=== PATIENT | female | born 1965 | race Caucasian/White ===

== ENCOUNTER 2018-11-21 13:04 | Inpatient (IN) | payer SELFPAY ==
[~2018-11-21] VITALS: Ht 177.8 cm; Wt 64.9 kg
--- NOTE | 2018-11-21 13:28 | NUR ---
ED Nurse Note: Pt came into the ER w/ complaints of coughing and sore throat x 3 days. Pt is rating the pain in her throat a 8/10. Pt is also complaiign of headache /. Pt is A + O x4. Ambulatory. Skin warm to touch.
[2018-11-21 13:29] VITALS: BP 112/70
--- NOTE | 2018-11-21 13:38 | Emergency Room Report ---
History of Present Illness General Chief Complaint: Dyspnea/Respdistress Source: Patient Present Illness HPI Patient present his cough and difficulty breathing for 3 days.. Patient reports having a prior history of COPD. She states she is a former smoker and quit approximately 6 months ago. She states she recently moved to this area from [place]. She denies any having a primary care physician. She reports having increased productive cough. States she has prior history of bronchitis.Reports of increased generalized body aches. Allergies: Coded Allergies: No Known Allergies (Unverified , 11/21/18) Patient History Past Medical History: see triage record Reviewed Nursing Documentation: PMH: Agreed; PSxH: Agreed Nursing Documentation-PMH Past Medical History: No History, Except For Hx Asthma: Yes Hx COPD: Yes Review of Systems All Other Systems: negative except mentioned in HPI Physical Exam Vital Signs Date Time Temp Pulse Resp B/P (MAP) Pulse Ox O2 Delivery O2 Flow Rate FiO2 11/21/18 13:17 98.2 107 22 102/64 90 Room Air 11/21/18 13:29 94 Sp02 EP Interpretation: reviewed, normal General Appearance: normal inspection, alert, GCS 15, moderate distress Head: atraumatic ENT: normal ENT inspection, hearing grossly normal, normal voice Neck: normal inspection, full range of motion, supple, no bony tend Respiratory: normal inspection, no respiratory distress, no retraction, wheezing Cardiovascular #1: no edema, tachycardia Gastrointestinal: normal inspection, normal bowel sounds, non tender, soft, no guarding, no hernia Genitourinary: no CVA tenderness Musculoskeletal: normal inspection, back normal, normal range of motion Neurologic: normal inspection, alert, responsive, speech normal Psychiatric: normal inspection, judgement/insight normal, mood/affect normal Skin: normal inspection, normal color, no rash Medical Decision Making Diagnostic Impression: Primary Impression: Pneumonia Additional Impressions: Hx of smoking COPD (chronic obstructive pulmonary disease) ER Course Patient presented for shortness of breath. Differential included but was not limited to anemia, pneumonia, pneumothorax, myocardial infarction, pericardial effusion, congestive heart failure, acidosis. because of complexity of patient 's case laboratory testing and imaging studies were ordered.Chest x-ray 1 view read by radiology showed bilateral infiltrates there is an abnormal density in the right perihilar region as well as a ill-defined density at the left lung base obscuring the lateral aspect of the left hemidiaphragm. Patient was given IV steroids as well as breathing treatments with some improvement in her cough. Patient was started on IV antibiotics.patient was noted to have prior smoking history and states she quit approximately 6 months ago. Patient will likely be admitted for further evaluation and work-up of pneumonia. Dr. House was contacted for inpatient management due to panel physician Labs Test 11/21/18 13:40 White Blood Count 15.5 K/UL (4.8-10.8) Red Blood Count 5.31 M/UL (4.20-5.40) Hemoglobin 15.2 G/DL (12.0-16.0) Hematocrit 44.7 % (37.0-47.0) Mean Corpuscular Volume 84 FL (80-99) Mean Corpuscular Hemoglobin 28.6 PG (27.0-31.0) Mean Corpuscular Hemoglobin Concent 34.0 G/DL (32.0-36.0) Red Cell Distribution Width 11.7 % (11.6-14.8) Platelet Count 141 K/UL (150-450) Mean Platelet Volume 9.5 FL (6.5-10.1) Neutrophils (%) (Auto) 78.4 % (45.0-75.0) Lymphocytes (%) (Auto) 14.5 % (20.0-45.0) Monocytes (%) (Auto) 6.7 % (1.0-10.0) Eosinophils (%) (Auto) 0.0 % (0.0-3.0) Basophils (%) (Auto) 0.5 % (0.0-2.0) Sodium Level 133 MMOL/L (136-145) Potassium Level 3.8 MMOL/L (3.5-5.1) Chloride Level 97 MMOL/L (98-107) Carbon Dioxide Level 27 MMOL/L (21-32) Anion Gap 9 mmol/L (5-15) Blood Urea Nitrogen 13 mg/dL (7-18) Creatinine 0.9 MG/DL (0.55-1.30) Estimat Glomerular Filtration Rate > 60 mL/min (>60) Glucose Level 123 MG/DL (74-106) Lactic Acid Level 1.90 mmol/L (0.4-2.0) Calcium Level 8.8 MG/DL (8.5-10.1) Total Bilirubin 0.8 MG/DL (0.2-1.0) Aspartate Amino Transf (AST/SGOT) 80 U/L (15-37) Alanine Aminotransferase (ALT/SGPT) 68 U/L (12-78) Alkaline Phosphatase 99 U/L (46-116) Troponin I 0.000 ng/mL (0.000-0.056) Total Protein 7.8 G/DL (6.4-8.2) Albumin 3.4 G/DL (3.4-5.0) Globulin 4.4 g/dL Albumin/Globulin Ratio 0.8 (1.0-2.7) EKG Diagnostic Results Rate: normal - 98 Rhythm: NSR ST Segments: no acute changes Last Vital Signs Date Time Temp Pulse Resp B/P (MAP) Pulse Ox O2 Delivery O2 Flow Rate FiO2 11/21/18 13:29 98.1 104 26 112/70 94 Room Air 11/21/18 13:29 94 Status: unchanged Disposition: ADMITTED INPATIENT Condition: Stable Omar Mahoney MD Nov 21, 2018 13:39
[2018-11-21] MEDS ORDERED: Albuterol/Ipratropium 3ml neb HHN ONE (13:45)
--- NOTE | 2018-11-21 13:50 | NUR ---
ED Nurse Note: RT at the bed side for breathing treatment.
--- NOTE | 2018-11-21 13:59 | NUR ---
ED Nurse Note: Blood collected and sent to lab.
[2018-11-21 14:19] LABS: BASOPHILS % (AUTO) 0.5 % (0.0-2.0); HEMATOCRIT 44.7 % (37.0-47.0); HEMOGLOBIN 15.2 G/DL (12.0-16.0); LYMPHOCYTES % (AUTO) 14.5 % (20.0-45.0); MEAN CORPUSCULAR VOLUME 84 FL (80-99); MONOCYTES % (AUTO) 6.7 % (1.0-10.0); NEUTROPHILS % (AUTO) 78.4 % (45.0-75.0); PLATELET COUNT 141 K/UL (150-450); RED BLOOD COUNT 5.31 M/UL (4.20-5.40); RED CELL DISTRIBUTION WIDTH 11.7 % (11.6-14.8); WHITE BLOOD COUNT 15.5 K/UL (4.8-10.8)
[2018-11-21 14:25] LABS: ANION GAP 9 mmol/L (5-15); BLOOD UREA NITROGEN 13 mg/dL (7-18); CALCIUM 8.8 MG/DL (8.5-10.1); CARBON DIOXIDE 27 MMOL/L (21-32); CHLORIDE 97 MMOL/L (98-107); CREATININE 0.9 MG/DL (0.55-1.30); POTASSIUM 3.8 MMOL/L (3.5-5.1); SODIUM 133 MMOL/L (136-145)
[2018-11-21 14:31] LABS: ALANINE AMINOTRANSFERASE 68 U/L (12-78); ALBUMIN 3.4 G/DL (3.4-5.0); ALBUMIN/GLOBULIN RATIO 0.8 (1.0-2.7); ALKALINE PHOSPHATASE 99 U/L (46-116); ASPARTATE AMINO TRANSFERASE 80 U/L (15-37); BILIRUBIN,TOTAL 0.8 MG/DL (0.2-1.0)
--- NOTE | 2018-11-21 14:36 | Diagnostic Imaging Report ---
Indication: Dyspnea Comparison: None A single view chest radiograph was obtained. Findings: There is an abnormal density in the right perihilar region. This could be a mass or area of nodular pneumonia. There is a more ill-defined density at the left lung base obscuring the lateral aspect of the left hemidiaphragm. Heart size is normal. There is an old right third rib fracture. IMPRESSION: Nodular density right perihilar region. Pneumonia versus mass. Please correlate clinically. Follow-up until resolution versus CT follow-up. Ill-defined infiltrate left lung base.
[2018-11-21] MEDS ORDERED: Ampicillin/Sulbactam Sod 3 GM in NS 110 ML IVPB ONE (14:45)
[2018-11-21] MEDS ORDERED: Solu-MEDROL 125mg Inj IVP ONE (14:45)
[2018-11-21 15:32] VITALS: BP 114/93
--- NOTE | 2018-11-21 16:00 | NUR ---
Report received from ED nurse, Heidy/RN, Patient came via [facility]. Heart monitor placed. IV intact, no sign of distress at this time. Vital signs B/P 110/67, HR 90, Temp 99.0, O2 sat 94%, RR 18. Patient resting, No sign of distress/SOB noted at this time. Will continue plan of care.
--- NOTE | 2018-11-21 16:02 | NUR ---
ED Nurse Note: Gave report to REGINA Licona.
--- NOTE | 2018-11-21 16:05 | NUR ---
ED Nurse Note: Pt transferred up to tele unit. Left ER w/ all belongings. No acute distress noted.
--- NOTE | 2018-11-21 19:50 | NUR ---
NURSE NOTES: Report received from Ange Hines RN. Pt is resting in bed in stable condition. Pt is awake, alert, and oriented x4. Pt is on room air and breathing is slightly shallow and labored. Pt is c/o productive cough x3 days with yellow mucous and pain in chest and back w/ cough. Pt placed on 2L O2 via nasal cannula and RT called to administer scheduled breathing treatment. IV site is L AC #20g and is asymptomatic, patent, and intact. Bed is in lowest position with brake engaged, side rails up x3, and bed alarm on. Call light and side table placed within reach. Will continue to monitor.
--- NOTE | 2018-11-21 19:59 | NUR ---
HAND-OFF: Report given to Katie/REGINA, No distress/SOB noted, Patient is in stable condition. Endorsed plan of care.
[2018-11-21 20:00] VITALS: BP 105/63
--- NOTE | 2018-11-21 20:02 | NUR ---
NURSE NOTES: Spoke with MD Frannie Walker and updated MD on pt condition, most recent vitals, and lab values. MD provided orders for patient. Orders noted and carried out.
--- NOTE | 2018-11-21 20:10 | NUR ---
NURSE NOTES: MD Larios called re: update on pt condition and was provided with pt current status, most recent vitals, and labs. MD provided orders for patient and orders were noted and carried out.
--- NOTE | 2018-11-21 20:10 | Pulmonology Progress Note ---
Assessment/Plan Assessment/Plan Pulmonary Consultation HPI Patient is a 53 year old woman with history of Chronic Obstructive Pumonary Disease, she presents with productive cough and difficulty breathing for 3 days. She is a former smoker and quit approximately 6 months ago. She states she recently moved to this area from [place]. She denies any having a primary care physician. She reports having increased productive cough, denies hemoptysis, has generalized body aches.. States she has prior history of bronchitis. Allergies: No Known Allergies Past Medical History: COPD/Asthma Reviewed Nursing Documentation: PMH: Agreed; PSxH: Agreed All Other Systems: negative except mentioned in HPI Physical Exam Vital Signs Noted Date Time Temp Pulse Resp B/P (MAP) Pulse Ox O2 Delivery O2 Flow Rate FiO2 11/21/18 13:17 98.2 107 22 102/64 90 Room Air 11/21/18 13:29 94 RA General Appearance: normal inspection, alert, GCS 15, moderate distress Head: atraumatic ENT: normal ENT inspection, hearing grossly normal, normal voice Neck: normal inspection, full range of motion, supple, no bony tend Respiratory: normal inspection, no respiratory distress, no retraction, wheezing noted Cardiovascular: HS1, HS2, normal, no edema, tachycardia Gastrointestinal: normal inspection, normal bowel sounds, non tender, soft, no guarding, no hernia Genitourinary: no CVA tenderness Musculoskeletal: normal inspection, back normal, normal range of motion Neurologic: normal inspection, alert, responsive, speech normal Psychiatric: normal inspection, judgement/insight normal, mood/affect normal Skin: normal inspection, normal color, no rash Diagnostic Impression: Primary Impression: Chronic obstructive pulmonary disease/Asthma Pneumonia Nodular abnormailty right perihilar region Hx of smoking Plan IV Antibiotics: Ceftroaxone/Azitho IV Steroids HHN Q4 PPX RAMP SUPERVISOR Medications Labs Test 11/21/18 13:40 White Blood Count 15.5 K/UL (4.8-10.8) Red Blood Count 5.31 M/UL (4.20-5.40) Hemoglobin 15.2 G/DL (12.0-16.0) Hematocrit 44.7 % (37.0-47.0) Mean Corpuscular Volume 84 FL (80-99) Mean Corpuscular Hemoglobin 28.6 PG (27.0-31.0) Mean Corpuscular Hemoglobin Concent 34.0 G/DL (32.0-36.0) Red Cell Distribution Width 11.7 % (11.6-14.8) Platelet Count 141 K/UL (150-450) Mean Platelet Volume 9.5 FL (6.5-10.1) Neutrophils (%) (Auto) 78.4 % (45.0-75.0) Lymphocytes (%) (Auto) 14.5 % (20.0-45.0) Monocytes (%) (Auto) 6.7 % (1.0-10.0) Eosinophils (%) (Auto) 0.0 % (0.0-3.0) Basophils (%) (Auto) 0.5 % (0.0-2.0) Sodium Level 133 MMOL/L (136-145) Potassium Level 3.8 MMOL/L (3.5-5.1) Chloride Level 97 MMOL/L (98-107) Carbon Dioxide Level 27 MMOL/L (21-32) Anion Gap 9 mmol/L (5-15) Blood Urea Nitrogen 13 mg/dL (7-18) Creatinine 0.9 MG/DL (0.55-1.30) Estimat Glomerular Filtration Rate > 60 mL/min (>60) Glucose Level 123 MG/DL (74-106) Lactic Acid Level 1.90 mmol/L (0.4-2.0) Calcium Level 8.8 MG/DL (8.5-10.1) Total Bilirubin 0.8 MG/DL (0.2-1.0) Aspartate Amino Transf (AST/SGOT) 80 U/L (15-37) Alanine Aminotransferase (ALT/SGPT) 68 U/L (12-78) Alkaline Phosphatase 99 U/L (46-116) Troponin I 0.000 ng/mL (0.000-0.056) Total Protein 7.8 G/DL (6.4-8.2) Albumin 3.4 G/DL (3.4-5.0) Globulin 4.4 g/dL Albumin/Globulin Ratio 0.8 (1.0-2.7) CXR: Ill defined nodular area right perihilar area, ill defined opacity left lower zone EKG: Rate: normal - 98 Rhythm: NSR ST Segments: no acute changes Subjective ROS Limited/Unobtainable: No Respiratory: Reports: shortness of breath Allergies: Coded Allergies: No Known Allergies (Unverified , 11/21/18) Objective Last 24 Hour Vital Signs Date Time Temp Pulse Resp B/P (MAP) Pulse Ox O2 Delivery O2 Flow Rate FiO2 11/21/18 16:44 Room Air 11/21/18 16:04 98.2 95 21 111/65 97 Room Air 21 11/21/18 15:32 98.0 96 27 114/93 96 Room Air 21 11/21/18 13:56 101 20 100 Room Air 21 11/21/18 13:50 98 22 98 Room Air 21 11/21/18 13:50 36 11/21/18 13:29 98.1 104 26 112/70 94 Room Air 11/21/18 13:29 104 26 Room Air 94 11/21/18 13:17 98.2 107 22 102/64 90 Room Air Laboratory Tests 11/21/18 12:42: Urine Opiates Screen Negative, Urine Barbiturates Screen Negative, Phencyclidine (PCP) Screen Negative, Urine Amphetamines Screen PositiveH, Urine Benzodiazepines Screen Negative, Urine Cocaine Screen Negative, Urine Marijuana (THC) Screen Negative 11/21/18 13:40: White Blood Count 15.5H, Red Blood Count 5.31, Hemoglobin 15.2, Hematocrit 44.7 , Mean Corpuscular Volume 84, Mean Corpuscular Hemoglobin 28.6, Mean Corpuscular Hemoglobin Concent 34.0, Red Cell Distribution Width 11.7, Platelet Count 141L, Mean Platelet Volume 9.5, Neutrophils (%) (Auto) 78.4H, Lymphocytes (%) (Auto) 14.5L, Monocytes (%) (Auto) 6.7, Eosinophils (%) (Auto) 0.0, Basophils (%) (Auto) 0.5, Sodium Level 133L, Potassium Level 3.8, Chloride Level 97L, Carbon Dioxide Level 27, Anion Gap 9, Blood Urea Nitrogen 13, Creatinine 0.9, Estimat Glomerular Filtration Rate > 60, Glucose Level 123H, Lactic Acid Level 1.90, Calcium Level 8.8, Total Bilirubin 0.8, Aspartate Amino Transf (AST/SGOT) 80H, Alanine Aminotransferase (ALT/SGPT) 68, Alkaline Phosphatase 99, Troponin I 0.000, Total Protein 7.8, Albumin 3.4, Globulin 4.4, Albumin/Globulin Ratio 0.8L Current Medications Medications (Trade) Dose Ordered Sig/Heike Route PRN Reason Start Time Stop Time Status Last Admin Dose Admin Acetaminophen (Tylenol) 650 mg Q4H PRN ORAL Mild Pain/Temp > 100.5 11/21/18 18:45 12/21/18 18:44 Albuterol/ Ipratropium (Albuterol/ Ipratropium) 3 ml Q4HRT HHN 11/21/18 19:00 11/26/18 18:59 Frankie Larios MD Nov 21, 2018 20:10
[2018-11-21] MEDS ORDERED: Hydromorphone 0.5mg/0.5ml inj IVP PRN (20:30)
[2018-11-21] MEDS ORDERED: Azithromycin 500 MG in D5W 275 ML IVPB SCH (20:30)
--- NOTE | 2018-11-21 20:50 | NUR ---
NURSE NOTES: MD Larios at bedside with pt. More orders provided per MD. Orders noted and carried out.
[2018-11-21] MEDS: Albuterol/Ipratropium 3ml neb HHN SCH (20:57)
[2018-11-21] MEDS ORDERED: Azithromycin 250mg tab ORAL SCH (21:00)
--- NOTE | 2018-11-21 21:30 | NUR ---
NURSE NOTES: Influenza A+B swab and sputum culture collected and delivered to lab for processing.
[2018-11-21] MEDS: Solu-MEDROL 125mg Inj IVP SCH (21:56)
[2018-11-21] MEDS: HYDROcodone/Acetamin 5/325 tab ORAL PRN (21:57)
[2018-11-21] MEDS: Heparin 5000 units/ml inj SUBQ SCH (21:58)
[2018-11-21] MEDS: cefTRIAXone 1 GM in D5W 55 ML IVPB SCH (22:43)
[2018-11-22] VITALS: BP 110/60
[2018-11-22] MEDS: Albuterol/Ipratropium 3ml neb HHN SCH ×7 (00:41→23:40)
[2018-11-22 04:00] VITALS: BP 122/75
[2018-11-22] MEDS: Solu-MEDROL 125mg Inj IVP SCH ×3 (06:26→20:45)
--- NOTE | 2018-11-22 07:19 | NUR ---
HAND-OFF: Report given to Ange Hines RN. Pt is resting in bed in stable condition. No acute distress noted. Endorsed plan of care.
--- NOTE | 2018-11-22 07:20 | NUR ---
NURSE NOTES: Received report from Katie/REGINA. Patient is awake and alert. No distress/SOB noted at this time. Bed in low position, Call light within reach. Will continue plan of care.
[2018-11-22 07:26] LABS: HEMATOCRIT 42.4 % (37.0-47.0); HEMOGLOBIN 14.4 G/DL (12.0-16.0); MEAN CORPUSCULAR VOLUME 84 FL (80-99); PLATELET COUNT 190 K/UL (150-450); RED BLOOD COUNT 5.04 M/UL (4.20-5.40); RED CELL DISTRIBUTION WIDTH 11.5 % (11.6-14.8); WHITE BLOOD COUNT 13.3 K/UL (4.8-10.8)
[2018-11-22 07:44] LABS: ALANINE AMINOTRANSFERASE 54 U/L (12-78); ALBUMIN 2.9 G/DL (3.4-5.0); ALBUMIN/GLOBULIN RATIO 0.6 (1.0-2.7); ALKALINE PHOSPHATASE 102 U/L (46-116); ANION GAP 10 mmol/L (5-15); ASPARTATE AMINO TRANSFERASE 32 U/L (15-37); BILIRUBIN,TOTAL 0.2 MG/DL (0.2-1.0); BLOOD UREA NITROGEN 18 mg/dL (7-18); CALCIUM 9.2 MG/DL (8.5-10.1); CARBON DIOXIDE 25 MMOL/L (21-32); CHLORIDE 100 MMOL/L (98-107); POTASSIUM 3.4 MMOL/L (3.5-5.1); SODIUM 135 MMOL/L (136-145)
[2018-11-22 08:00] VITALS: BP 123/73
[2018-11-22] MEDS: HYDROcodone/Acetamin 5/325 tab ORAL PRN ×2 (09:08→22:53)
[2018-11-22] MEDS: Oseltamivir 75mg cap ORAL SCH ×2 (09:08→18:49)
[2018-11-22] MEDS: Azithromycin 250mg tab ORAL SCH (09:08)
[2018-11-22] MEDS: Heparin 5000 units/ml inj SUBQ SCH ×2 (09:10→20:47)
[2018-11-22] MEDS ORDERED: Pneumococcal Vaccine 25mcg/0.5ml IM ONE (11:30)
--- NOTE | 2018-11-22 11:52 | Diagnostic Imaging Report ---
Clinical Indication: Chronic obstructive pulmonary disease, productive cough, difficulty breathing for 3 days Technique: Spiral acquisitions obtained through the chest. No IV contrast utilized, per referring physician request. Multiplanar reconstructions generated. Total dose length product 698.62 mGycm. CTDIvol(s) 18.33 mGy. Dose reduction achieved using automated exposure control Comparison: No comparison CTs. Reference made to chest radiograph 11/21/2018 Findings:In the inferior right lower lobe, abutting the minor fissure, there is a 4 x 2.3 cm area of opacity which is fairly dense, contains air bronchograms. There is surrounding groundglass opacity also abutting the minor fissure. The right middle lobe is clear. Ill-defined peripheral parenchymal opacities in the posterior right lower lobe are noted, with fairly dense dependent posterior atelectasis noted in the right lower lobe. There may be an element of scarring, as there appears to be some bronchiectasis associated with this. In the posterior inferior lingula, there is an irregular opacity measuring approximately 3 cm AP by 3 cm transverse by 3 cm craniocaudad. This also contains some air-fluid levels. Focal dense opacity is seen in the posterior left infrahilar region measuring 2.5 x 2.6 x 3 cm, also with air bronchograms. More ill-defined opacities are seen in the posterior and inferior left lower lobe, mostly appearing to represent dependent atelectatic changes but also possibly a component of consolidation. No definite congestion. No definite effusions. Minimal scarring is seen in the lung apices bilaterally. The heart size is normal. No definite pericardial effusion. No mediastinal or hilar mass or adenopathy. No axillary or chest wall mass or adenopathy. There is a right third rib fracture deformity, old. The bones are otherwise unremarkable. The included upper abdominal viscera are unremarkable. There is incidental finding of an accessory splenule. Impression: Bilateral parenchymal opacities, as described. The larger of these contain bronchograms, suggesting that these findings represent pneumonia rather than mass lesion. However, the latter cannot be completely excluded, and follow-up to radiographic resolution is recommended. Bilateral posterior basilar opacities likely reflect combination of atelectasis and scarring. Incidental findings of old healed right third rib fracture, accessory splenule The CT scanner at [facility] is accredited by the [employer] and the scans are performed using protocols designed to limit radiation exposure to as low as reasonably achievable to attain images of sufficient resolution adequate for diagnostic evaluation.
[2018-11-22 12:00] VITALS: BP 139/86
--- NOTE | 2018-11-22 12:54 | Consultation ---
Consult Note Consult Note Asked to eval at the request of Dr House Patient present his cough and difficulty breathing for 3 days.. Patient reports having a prior history of COPD. She states she is a former smoker and quit approximately 6 months ago. She states she recently moved to this area from [place]. She denies any having a primary care physician. She reports having increased productive cough. States she has prior history of bronchitis.Reports of increased generalized body aches. No Known Allergies (Unverified , 11/21/18) Past Medical History: No History, Except For Hx Asthma: Yes Hx COPD: Yes examied data reviewed Assessment/Plan Mild HypoKalemia and HypoNatremia Urine + for Amphetamines- Chronic obstructive pulmonary disease/Asthma Pneumonia Nodular abnormailty right perihilar region Hx of smoking Per pulmonary PO K supplement Monitor lytes steroid taper per pulmonary ! Donal Mooney MD November 22, 2018 12:54
--- NOTE | 2018-11-22 13:42 | Pulmonology Progress Note ---
Assessment/Plan Assessment/Plan Pulmonary Progress Note HPI Patient is a 53 year old woman with history of Chronic Obstructive Pumonary Disease, she presents with productive cough and difficulty breathing for 3 days. She is a former smoker and quit approximately 6 months ago. She states she recently moved to this area from [facility]. She denies any having a primary care physician. She reports having increased productive cough, denies hemoptysis, has generalized body aches.. States she has prior history of bronchitis. Noted to have bilateral infiltrates Allergies: No Known Allergies Past Medical History: COPD/Asthma Reviewed Nursing Documentation: PMH: Agreed; PSxH: Agreed All Other Systems: negative except mentioned in HPI Physical Exam Vital Signs Noted General Appearance: normal inspection, alert, GCS 15, not distressed Head: atraumatic ENT: normal ENT inspection, hearing grossly normal, normal voice Neck: normal inspection, full range of motion, supple, no bony tend Respiratory: normal inspection, no respiratory distress, no retraction, no wheezing Cardiovascular: HS1, HS2, normal, no edema, tachycardia Gastrointestinal: normal inspection, normal bowel sounds, non tender, soft, no guarding, no hernia Genitourinary: no CVA tenderness Musculoskeletal: normal inspection, back normal, normal range of motion Neurologic: normal inspection, alert, responsive, speech normal Psychiatric: normal inspection, judgement/insight normal, mood/affect normal Skin: normal inspection, normal color, no rash Diagnostic Impression: Primary Impression: Chronic obstructive pulmonary disease/Asthma Pneumonia Nodular abnormailty right perihilar region - no definite mass on CT Hx of smoking Plan IV Antibiotics: Ceftroaxone/Azitho IV Steroids HHN Q4 PPX [employer] Medications Viral studies Labs Test 11/21/18 13:40 White Blood Count 15.5 K/UL (4.8-10.8) Red Blood Count 5.31 M/UL (4.20-5.40) Hemoglobin 15.2 G/DL (12.0-16.0) Hematocrit 44.7 % (37.0-47.0) Mean Corpuscular Volume 84 FL (80-99) Mean Corpuscular Hemoglobin 28.6 PG (27.0-31.0) Mean Corpuscular Hemoglobin Concent 34.0 G/DL (32.0-36.0) Red Cell Distribution Width 11.7 % (11.6-14.8) Platelet Count 141 K/UL (150-450) Mean Platelet Volume 9.5 FL (6.5-10.1) Neutrophils (%) (Auto) 78.4 % (45.0-75.0) Lymphocytes (%) (Auto) 14.5 % (20.0-45.0) Monocytes (%) (Auto) 6.7 % (1.0-10.0) Eosinophils (%) (Auto) 0.0 % (0.0-3.0) Basophils (%) (Auto) 0.5 % (0.0-2.0) Sodium Level 133 MMOL/L (136-145) Potassium Level 3.8 MMOL/L (3.5-5.1) Chloride Level 97 MMOL/L (98-107) Carbon Dioxide Level 27 MMOL/L (21-32) Anion Gap 9 mmol/L (5-15) Blood Urea Nitrogen 13 mg/dL (7-18) Creatinine 0.9 MG/DL (0.55-1.30) Estimat Glomerular Filtration Rate > 60 mL/min (>60) Glucose Level 123 MG/DL (74-106) Lactic Acid Level 1.90 mmol/L (0.4-2.0) Calcium Level 8.8 MG/DL (8.5-10.1) Total Bilirubin 0.8 MG/DL (0.2-1.0) Aspartate Amino Transf (AST/SGOT) 80 U/L (15-37) Alanine Aminotransferase (ALT/SGPT) 68 U/L (12-78) Alkaline Phosphatase 99 U/L (46-116) Troponin I 0.000 ng/mL (0.000-0.056) Total Protein 7.8 G/DL (6.4-8.2) Albumin 3.4 G/DL (3.4-5.0) Globulin 4.4 g/dL Albumin/Globulin Ratio 0.8 (1.0-2.7) CXR: Ill defined nodular area right perihilar area, ill defined opacity left lower zone CT Chest: Bilateral parenchymal opacities, as described. The larger of these contain bronchograms, suggesting that these findings represent pneumonia rather than mass lesion. However, the latter cannot be completely excluded, and follow-up to radiographic resolution is recommended. Bilateral posterior basilar opacities likely reflect combination of atelectasis and scarring. Incidental findings of old healed right third rib fracture, accessory splenule EKG: Rate: normal - 98 Rhythm: NSR ST Segments: no acute changes Subjective ROS Limited/Unobtainable: Yes Respiratory: Reports: shortness of breath Allergies: Coded Allergies: No Known Allergies (Unverified , 11/21/18) Objective Last 24 Hour Vital Signs Date Time Temp Pulse Resp B/P (MAP) Pulse Ox O2 Delivery O2 Flow Rate FiO2 11/22/18 11:06 110 23 99 Nasal Cannula 2.0 28 11/22/18 10:49 105 24 96 Nasal Cannula 2.0 28 11/22/18 08:00 97.5 110 18 123/73 (90) 97 11/22/18 07:33 104 21 98 Nasal Cannula 2.0 28 11/22/18 07:17 97 Nasal Cannula 2.0 28 11/22/18 07:17 102 22 97 Nasal Cannula 2.0 28 11/22/18 07:17 Nasal Cannula 2.0 28 11/22/18 04:00 86 11/22/18 04:00 97.3 102 18 122/75 (91) 96 11/22/18 03:49 86 18 99 Nasal Cannula 2.0 28 11/22/18 03:39 28 11/22/18 03:39 88 22 97 Nasal Cannula 2.0 28 11/22/18 00:51 82 18 99 Nasal Cannula 2.0 28 11/22/18 00:41 81 22 96 Nasal Cannula 2.0 28 11/22/18 00:41 28 11/22/18 00:00 97.5 95 18 110/60 (77) 98 11/22/18 00:00 91 11/21/18 21:09 89 20 98 Nasal Cannula 2.0 28 11/21/18 21:00 Nasal Cannula 2.0 11/21/18 20:57 81 22 90 Room Air 21 11/21/18 20:57 36 11/21/18 20:00 84 11/21/18 20:00 97.8 83 18 105/63 (77) 98 11/21/18 16:44 Room Air 11/21/18 16:04 98.2 95 21 111/65 97 Room Air 21 11/21/18 15:32 98.0 96 27 114/93 96 Room Air 21 11/21/18 13:56 101 20 100 Room Air 21 11/21/18 13:50 98 22 98 Room Air 21 11/21/18 13:50 36 Intake and Output 11/21/18 11/22/18 18:59 06:59 Intake Total 600 ml 360 ml Balance 600 ml 360 ml Intake Oral 360 ml IV Total 600 ml # Voids 2 2 Microbiology Date/Time Source Procedure Growth Status 11/21/18 21:15 Nasal Nares Right - Final Complete 11/21/18 21:15 Nasal Nares Right - Final Complete 11/21/18 21:10 Sputum Gram Stain - Final Resulted 11/21/18 21:10 Sputum Sputum Culture Pending Resulted Laboratory Tests 11/22/18 06:59: White Blood Count 13.3H, Red Blood Count 5.04, Hemoglobin 14.4, Hematocrit 42.4 , Mean Corpuscular Volume 84, Mean Corpuscular Hemoglobin 28.6, Mean Corpuscular Hemoglobin Concent 34.0, Red Cell Distribution Width 11.5L, Platelet Count 190, Mean Platelet Volume 6.9, Neutrophils (%) (Auto) , Lymphocytes (%) (Auto) , Monocytes (%) (Auto) , Eosinophils (%) (Auto) , Basophils (%) (Auto) , Differential Total Cells Counted 100, Neutrophils % ( Manual) 90H, Lymphocytes % (Manual) 7L, Monocytes % (Manual) 3, Eosinophils % ( Manual) 0, Basophils % (Manual) 0, Band Neutrophils 0, Platelet Estimate Adequate, Platelet Morphology Normal, Red Blood Cell Morphology Normal, Sodium Level 135L, Potassium Level 3.4L, Chloride Level 100, Carbon Dioxide Level 25, Anion Gap 10, Blood Urea Nitrogen 18, Creatinine 1.0, Estimat Glomerular Filtration Rate 58.5, Glucose Level 286#H, Calcium Level 9.2, Total Bilirubin 0.2, Aspartate Amino Transf (AST/SGOT) 32, Alanine Aminotransferase (ALT/SGPT) 54, Alkaline Phosphatase 102, Total Protein 7.8, Albumin 2.9L, Globulin 4.9, Albumin/Globulin Ratio 0.6L Current Medications Medications (Trade) Dose Ordered Sig/Heike Route PRN Reason Start Time Stop Time Status Last Admin Dose Admin Acetaminophen (Tylenol) 650 mg Q4H PRN ORAL Mild Pain/Temp > 100.5 11/21/18 18:45 12/21/18 18:44 Acetaminophen/ Hydrocodone Bitart ([place] 5/325) 1 tab Q6H PRN ORAL Moderate Pain (Pain Scale 4-6) 11/21/18 20:30 11/28/18 20:29 11/22/18 09:08 Albuterol/ Ipratropium (Albuterol/ Ipratropium) 3 ml Q4HRT HHN 11/21/18 19:00 11/26/18 18:59 11/22/18 10:49 Azithromycin (Zithromax) 250 mg DAILY ORAL 11/22/18 09:00 11/29/18 08:59 11/22/18 09:08 Ceftriaxone Sodium 1 gm/ Dextrose 55 ml @ 110 mls/hr Q24H IVPB 11/21/18 22:00 11/28/18 21:59 11/21/18 22:43 Heparin Sodium (Porcine) (Heparin 5000 units/ml) 5,000 units EVERY 12 HOURS SUBQ 11/21/18 21:00 12/21/18 20:59 11/22/18 09:10 Hydromorphone HCl (Dilaudid) 0.5 mg Q4H PRN IVP Severe Pain (Pain Scale 7-10) 11/21/18 20:30 11/28/18 20:29 Methylprednisolone Sodium Succinate (Solu-MEDROL) 60 mg EVERY 8 HOURS IVP 11/21/18 22:00 12/21/18 21:59 11/22/18 06:26 Ondansetron HCl (Zofran) 4 mg Q8H PRN IVP Nausea & Vomiting 11/21/18 20:30 12/21/18 20:29 Oseltamivir Phosphate (Tamiflu) 75 mg TWICE A DAY ORAL 11/22/18 09:00 11/27/18 08:59 11/22/18 09:08 Pneumococcal Polyvalent Vaccine (Pneumovax) 0.5 ml ONCE ONCE IM 11/22/18 11:30 11/22/18 11:31 UNV Potassium Chloride (K-Dur) 40 meq DAILY ORAL 11/22/18 09:00 12/22/18 08:59 11/22/18 09:05 Sodium Chloride 1,000 ml @ 75 mls/hr [id number] IV 11/22/18 13:07 12/22/18 13:06 Frankie Larios MD November 22, 2018 13:42
[2018-11-22 16:00] VITALS: BP 127/75
--- NOTE | 2018-11-22 16:04 | NUR ---
CASE MANAGEMENT:REVIEW 53 YR OLD FEMALE PRESENTED TO ER CC: SOB AND HEADACHE SI: PNEUMONIA. COPD 98.2 107 22 102/64 90% ON RA WBC+15.5 IS: 500CC NS BOLUS DUONEB HHN IV AMPICILLIN IV SOLUMEDROL CHEST XRAY BLOOD CX : TO TELEMETRY INTERQUAL CRITERIA MET
--- NOTE | 2018-11-22 18:30 | Consultation ---
DATE OF CONSULTATION: 11/22/2018 INFECTIOUS DISEASE CONSULTATION CONSULTING PHYSICIAN: Ross Walker M.D. PRIMARY ATTENDING PHYSICIAN: Addison Hernandez M.D. REASON FOR CONSULT: Pneumonia, COPD, and sepsis. HISTORY OF PRESENT ILLNESS: This is a 53-year-old white female admitted yesterday from home complaining of shortness of breath and productive cough for three days. The patient has a history of COPD and history of smoking, still smoking on and off. At the time of admission had leukocytosis of 15.3, tachycardia, and tachypnea. PAST MEDICAL HISTORY: COPD. ALLERGIES: No known drug allergies. MEDICATIONS: Azithromycin, Tamiflu, ceftriaxone, methylprednisone, heparin, Zofran, [place], hydromorphone, and Tylenol. SOCIAL HISTORY: , lives alone. She has history of drinking, but cannot provide exact amount and smoking. Recently moved from [place] to [facility]. Denies drug abuse. REVIEW OF SYSTEMS: Feels hot at home, but has had subjective fever but no fever in the hospital, productive cough, shortness of breath. No nausea. No vomiting. No problem passing urine. PHYSICAL EXAMINATION: VITAL SIGNS: Temperature 97.3, pulse 110, and respiratory rate 23 and at the time of admission was 26. GENERAL APPEARANCE: Seems to be thin. No acute distress. HEAD AND NECK: Matthews conjunctivae. No oral lesion. HEART: S1, S2. Regular. LUNGS: Clear with decreased sounds. ABDOMEN: Soft and nontender. EXTREMITIES: No edema. LABORATORY AND DIAGNOSTIC DATA: Sodium 135, potassium 3.4, chloride 100, and bicarbonate 25. Glucose is 286. WBC today is 13.3, hemoglobin 14.4, hematocrit 42.4, and platelets 190. Urine toxicology was positive for amphetamines. Influenza A and B test was negative. Chest x-ray showed nodular density right perihilar area, pneumonia versus mass, ill-defined infiltrate in left lung base. IMPRESSION: Sepsis with leukocytosis, tachycardia, and tachypnea likely secondary to pneumonia. The patient has chronic obstructive pulmonary disease exacerbation and has nicotine dependence, methamphetamine abuse, and alcohol abuse. RECOMMENDATION: We will give the patient pneumococcal shot. We will continue with Zithromax and Rocephin. We will follow up CT scan of the chest and order HIV test because of drug abuse. At the end of my exam, I thank Dr. Hernandez for involving me in the care of this patient. Ross Walker M.D. DR: YEN JOB#: [id number] CC: GARETH
--- NOTE | 2018-11-22 19:45 | NUR ---
HAND-OFF: Report given to Tigre/RN, Patient is awake and alert, No sign of distress/SOB noted at this time. Endorsed plan of care.
--- NOTE | 2018-11-22 19:46 | NUR ---
NURSE NOTES: Got report from Monae RN. Pt in stable condition. Denies any pain. No s/s of distress or discomfort noted. Pt resting in bed comfortably. Bed in low and locked position, call light within reach, bedside table within reach. Continue to monitor.
[2018-11-22 20:00] VITALS: BP 123/83
[2018-11-22] MEDS: NovoLOG Insulin Flexpen SUBQ SCH (21:01)
[2018-11-22] MEDS: cefTRIAXone 1 GM in D5W 55 ML IVPB SCH (22:42)
[2018-11-23] VITALS: BP 128/78
[2018-11-23] MEDS: Guaifenesin/DM 10ml syrup ORAL PRN ×3 (00:09→22:35)
[2018-11-23] MEDS: Albuterol/Ipratropium 3ml neb HHN SCH ×6 (03:32→23:33)
--- NOTE | 2018-11-23 03:45 | History and Physical Report ---
DATE OF ADMISSION: 11/21/2018 HISTORY OF PRESENT ILLNESS: The patient comes in because of shortness of breath, severe productive cough, headache, and vomiting. She has a history of COPD and asthma. The patient is being admitted for bilateral pneumonia, was not currently on medications. The patient was also given IV Solu-Medrol in the emergency room. The patient was admitted for bilateral pneumonia and tachycardia as well. PAST MEDICAL HISTORY: History of COPD and asthma. PAST SURGICAL HISTORY: Eye surgery and nose surgery. SOCIAL HISTORY: History of smoking, history of drug and alcohol abuse. MEDICATIONS: She takes p.r.n. inhaler. FAMILY HISTORY: Noncontributory. REVIEW OF SYSTEMS: HEENT: Denies headaches. RESPIRATORY: Has shortness of breath and productive cough. CARDIOVASCULAR: Denies chest pain. GASTROINTESTINAL: Reports vomiting. Denies constipation. EXTREMITIES: Denies pain. CENTRAL NERVOUS SYSTEM: No change in speech pattern. Does have headache. NEUROLOGIC: Feels weak. PHYSICAL EXAMINATION: VITAL SIGNS: Temperature 97.2, pulse is 110, and blood pressure 139/86. HEENT: PERRLA. NECK: Supple. No lymphadenopathy. CHEST: Clear to auscultation. CARDIOVASCULAR: Tachycardic. GASTROINTESTINAL: Soft, nontender, and nondistended. No organomegaly. EXTREMITIES: No edema. Moves all four extremities. Sensory intact to light touch. Motor strength is equal 5/5 in all four extremities. LABORATORY DATA: WBC of 15.5, hemoglobin 16.2, and platelets 141,000. Sodium 133, potassium 3.8, BUN of 13, creatinine 0.9. ASSESSMENT: 1. Shortness of breath. 2. Pneumonia. 3. Tachycardia. 4. Hyponatremia. PLAN: I have asked Dr. Ross Walker, Dr. Mooney, Dr. Larios to see the patient for the above-mentioned diagnoses and treatment. Antibiotics per Dr. Ross Walker and the patient also has COPD exacerbation, for which Dr. Larios has been consulted. Addison Hernandez M.D. DR: DE JOB#: [id number] CC:
[2018-11-23 04:20] VITALS: BP 104/65
[2018-11-23] MEDS: NovoLOG Insulin Flexpen SUBQ SCH ×4 (06:25→22:07)
[2018-11-23 06:51] LABS: HEMATOCRIT 37.4 % (37.0-47.0); HEMOGLOBIN 12.6 G/DL (12.0-16.0); MEAN CORPUSCULAR VOLUME 84 FL (80-99); PLATELET COUNT 210 K/UL (150-450); RED BLOOD COUNT 4.43 M/UL (4.20-5.40); RED CELL DISTRIBUTION WIDTH 11.4 % (11.6-14.8); WHITE BLOOD COUNT 17.8 K/UL (4.8-10.8)
--- NOTE | 2018-11-23 07:15 | NUR ---
NURSE NOTES: Received report from Aditya TAPIA. Pt sitting in bed and eating breakfast. AOX4. NO c/o pain. No signs of distress noted. On 2LPM via NC. IV in R hand 22g intact and patent. Bed in it's lowest position and locked. Will continue to plan of care.
--- NOTE | 2018-11-23 07:15 | NUR ---
HAND-OFF: Report given to Min RN. Endorsed plan of care.
[2018-11-23 07:43] LABS: ALANINE AMINOTRANSFERASE 52 U/L (12-78); ALBUMIN 2.7 G/DL (3.4-5.0); ALBUMIN/GLOBULIN RATIO 0.6 (1.0-2.7); ALKALINE PHOSPHATASE 93 U/L (46-116); ANION GAP 8 mmol/L (5-15); ASPARTATE AMINO TRANSFERASE 34 U/L (15-37); BILIRUBIN,TOTAL 0.1 MG/DL (0.2-1.0); BLOOD UREA NITROGEN 19 mg/dL (7-18); CALCIUM 8.8 MG/DL (8.5-10.1); CARBON DIOXIDE 25 MMOL/L (21-32); CHLORIDE 104 MMOL/L (98-107); CREATININE 0.7 MG/DL (0.55-1.30); POTASSIUM 4.6 MMOL/L (3.5-5.1); SODIUM 137 MMOL/L (136-145)
[2018-11-23 08:00] VITALS: BP 110/67
--- NOTE | 2018-11-23 08:37 | Pulmonology Progress Note ---
Assessment/Plan Assessment/Plan COPD SOB patchy pneumonia abnormal CT PLAN care noted respiratory care supportive care encourage cough MAY GO HOME ON MEDROL DOSE BERNARDO [id number] QD X 7 DAYS PROAIR PRN ANORO 1 PUFF QD will need outpatient follow up of imaging and pulmonary status Subjective Allergies: Coded Allergies: No Known Allergies (Unverified , 11/21/18) Subjective coverage for Dr. Larios reviewed care Objective Last 24 Hour Vital Signs Date Time Temp Pulse Resp B/P (MAP) Pulse Ox O2 Delivery O2 Flow Rate FiO2 11/23/18 07:54 83 20 98 Nasal Cannula 2.0 28 11/23/18 04:20 96.9 94 20 104/65 (78) 97 11/23/18 04:20 87 11/23/18 03:42 107 20 99 Nasal Cannula 2.0 28 11/23/18 03:32 28 11/23/18 03:32 107 20 98 Nasal Cannula 2.0 28 11/23/18 00:00 109 11/23/18 00:00 97.0 106 20 128/78 (95) 96 11/22/18 23:50 102 20 98 Nasal Cannula 2.0 28 11/22/18 23:40 98 22 96 Nasal Cannula 2.0 28 11/22/18 23:40 28 11/22/18 23:23 97.5 11/22/18 21:00 Nasal Cannula 2.0 11/22/18 20:00 97.9 110 18 123/83 (96) 96 11/22/18 20:00 110 11/22/18 19:20 112 20 98 Nasal Cannula 2.0 28 11/22/18 19:09 111 20 95 Nasal Cannula 2.0 28 11/22/18 19:09 95 Nasal Cannula 2.0 28 11/22/18 19:09 Nasal Cannula 2.0 28 11/22/18 19:09 28 11/22/18 16:00 100 11/22/18 16:00 97.5 102 20 127/75 (92) 97 11/22/18 15:42 Nasal Cannula 11/22/18 15:42 Nasal Cannula 11/22/18 12:00 115 11/22/18 12:00 97.2 110 20 139/86 (103) 97 11/22/18 11:06 110 23 99 Nasal Cannula 2.0 28 11/22/18 10:49 105 24 96 Nasal Cannula 2.0 28 11/22/18 09:00 Nasal Cannula 2.0 Intake and Output 11/22/18 11/23/18 19:00 07:00 Intake Total 750 ml Output Total 840 ml Balance -90 ml Intake Oral 750 ml Output Urine Total 840 ml # Voids 2 Objective WDWN NAD reduced breath sounds bilaterally without rhonchi or wheeze [id number] without MRG NABS nontender no HSM no CCE Microbiology Date/Time Source Procedure Growth Status 11/21/18 21:15 Nasal Nares Right - Final Complete 11/21/18 21:15 Nasal Nares Right - Final Complete 11/21/18 21:10 Sputum Gram Stain - Final Resulted 11/21/18 21:10 Sputum Sputum Culture - Preliminary NORMAL UPPER RESPIRATORY BRIGETTE AT 24 ... Resulted Laboratory Tests 11/23/18 06:18: White Blood Count 17.8H, Red Blood Count 4.43, Hemoglobin 12.6, Hematocrit 37.4 , Mean Corpuscular Volume 84, Mean Corpuscular Hemoglobin 28.5, Mean Corpuscular Hemoglobin Concent 33.8, Red Cell Distribution Width 11.4L, Platelet Count 210, Mean Platelet Volume 8.1, Neutrophils (%) (Auto) , Lymphocytes (%) (Auto) , Monocytes (%) (Auto) , Eosinophils (%) (Auto) , Basophils (%) (Auto) , Neutrophils % (Manual) [Pending], Lymphocytes % (Manual) [Pending], Platelet Estimate [Pending], Platelet Morphology [Pending], Sodium Level 137, Potassium Level 4.6, Chloride Level 104, Carbon Dioxide Level 25, Anion Gap 8, Blood Urea Nitrogen 19H, Creatinine 0.7, Estimat Glomerular Filtration Rate > 60, Glucose Level 196H, Osmolality 299, Uric Acid [Pending], Calcium Level 8.8, Phosphorus Level [Pending], Magnesium Level [Pending], Total Bilirubin 0.1L, Aspartate Amino Transf (AST/SGOT) 34, Alanine Aminotransferase ( ALT/SGPT) 52, Alkaline Phosphatase 93, C-Reactive Protein, Quantitative [Pending ], Pro-B-Type Natriuretic Peptide [Pending], Total Protein 6.9, Albumin 2.7L, Globulin 4.2, Albumin/Globulin Ratio 0.6L, HIV (1&2) Antibody Rapid Negative Current Medications Medications (Trade) Dose Ordered Sig/Heike Route PRN Reason Start Time Stop Time Status Last Admin Dose Admin Acetaminophen (Tylenol) 650 mg Q4H PRN ORAL Mild Pain/Temp > 100.5 11/21/18 18:45 12/21/18 18:44 Acetaminophen/ Hydrocodone Bitart ([place] 5/325) 1 tab Q6H PRN ORAL Moderate Pain (Pain Scale 4-6) 11/21/18 20:30 11/28/18 20:29 11/22/18 22:53 Albuterol/ Ipratropium (Albuterol/ Ipratropium) 3 ml Q4HRT HHN 11/21/18 19:00 11/26/18 18:59 11/23/18 07:52 Azithromycin (Zithromax) 250 mg DAILY ORAL 11/22/18 09:00 11/29/18 08:59 11/22/18 09:08 Ceftriaxone Sodium 1 gm/ Dextrose 55 ml @ 110 mls/hr Q24H IVPB 11/21/18 22:00 11/28/18 21:59 11/22/18 22:42 Dextrose (Dextrose 50%) 25 ml Q30M PRN IV Hypoglycemia 11/22/18 16:45 12/22/18 16:44 Dextrose (Dextrose 50%) 50 ml Q30M PRN IV Hypoglycemia 11/22/18 16:45 12/22/18 16:44 Guaifenesin/ Dextromethorphan (Robitussin DM Syrup) 10 ml Q4H PRN ORAL For Cough 11/23/18 00:00 12/23/18 00:00 11/23/18 00:09 Heparin Sodium (Porcine) (Heparin 5000 units/ml) 5,000 units EVERY 12 HOURS SUBQ 11/21/18 21:00 12/21/18 20:59 11/22/18 20:47 Hydromorphone HCl (Dilaudid) 0.5 mg Q4H PRN IVP Severe Pain (Pain Scale 7-10) 11/21/18 20:30 11/28/18 20:29 Insulin Aspart (NovoLOG) BEFORE MEALS AND HS SUBQ 11/22/18 21:00 12/22/18 20:59 11/23/18 06:25 Lansoprazole (Prevacid) 30 mg DAILY ORAL 11/22/18 21:00 12/22/18 20:59 11/22/18 20:45 Methylprednisolone Sodium Succinate (Solu-MEDROL) 60 mg Q12HR IVP 11/22/18 21:00 12/21/18 21:59 11/22/18 20:45 Ondansetron HCl (Zofran) 4 mg Q8H PRN IVP Nausea & Vomiting 11/21/18 20:30 12/21/18 20:29 Oseltamivir Phosphate (Tamiflu) 75 mg TWICE A DAY ORAL 11/22/18 09:00 11/27/18 08:59 11/22/18 18:49 Pneumococcal Polyvalent Vaccine (Pneumovax) 0.5 ml ONCE ONCE IM 11/22/18 11:30 11/22/18 11:31 UNV Potassium Chloride (K-Dur) 40 meq DAILY ORAL 11/22/18 09:00 12/22/18 08:59 11/22/18 09:05 Sodium Chloride 1,000 ml @ 75 mls/hr [id number] IV 11/22/18 13:07 12/22/18 13:06 11/23/18 01:57 Ean Landin MD November 23, 2018 08:37
[2018-11-23 08:44] LABS: PHOSPHORUS 2.6 MG/DL (2.5-4.9)
[2018-11-23] MEDS: Heparin 5000 units/ml inj SUBQ SCH ×2 (09:00→22:06)
[2018-11-23] MEDS: Oseltamivir 75mg cap ORAL SCH ×2 (09:33→18:04)
[2018-11-23] MEDS: Solu-MEDROL 125mg Inj IVP SCH ×2 (09:33→22:05)
[2018-11-23] MEDS: Azithromycin 250mg tab ORAL SCH (09:33)
--- NOTE | 2018-11-23 11:22 | Infectious Diseases Prog Note ---
Assessment/Plan Assessment/Plan IMPRESSION: Sepsis pneumonia. chronic obstructive pulmonary disease exacerbation nicotine dependence, methamphetamine abuse, alcohol abuse. RECOMMENDATION: will continue with Zithromax and Rocephin in hospital at time of discharge to [facility] to finish 7 days treatment F/U CXR after discharge Subjective ROS Limited/Unobtainable: No Constitutional: Reports: no symptoms Respiratory: Reports: productive cough Cardiovascular: Reports: no symptoms Gastrointestinal/Abdominal: Reports: no symptoms Genitourinary: Reports: no symptoms Allergies: Coded Allergies: No Known Allergies (Unverified , 11/21/18) Objective Vital Signs Last 24 Hour Vital Signs Date Time Temp Pulse Resp B/P (MAP) Pulse Ox O2 Delivery O2 Flow Rate FiO2 11/23/18 09:00 Nasal Cannula 2.0 11/23/18 08:16 Nasal Cannula 2.0 28 11/23/18 08:16 98 Nasal Cannula 2.0 28 11/23/18 08:15 87 20 99 Nasal Cannula 2.0 11/23/18 08:00 98.0 86 16 110/67 (81) 98 11/23/18 07:54 83 20 98 Nasal Cannula 2.0 28 11/23/18 04:20 96.9 94 20 104/65 (78) 97 11/23/18 04:20 87 11/23/18 03:42 107 20 99 Nasal Cannula 2.0 11/23/18 03:32 28 11/23/18 03:32 107 20 98 Nasal Cannula 2.0 11/23/18 00:00 109 11/23/18 00:00 97.0 106 20 128/78 (95) 96 11/22/18 23:50 102 20 98 Nasal Cannula 2.0 28 11/22/18 23:40 98 22 96 Nasal Cannula 2.0 28 11/22/18 23:40 28 11/22/18 23:23 97.5 11/22/18 21:00 Nasal Cannula 2.0 11/22/18 20:00 97.9 110 18 123/83 (96) 96 11/22/18 20:00 110 11/22/18 19:20 112 20 98 Nasal Cannula 2.0 11/22/18 19:09 111 20 95 Nasal Cannula 2.0 11/22/18 19:09 95 Nasal Cannula 2.0 11/22/18 19:09 Nasal Cannula 2.0 28 11/22/18 19:09 28 11/22/18 16:00 100 11/22/18 16:00 97.5 102 20 127/75 (92) 97 11/22/18 15:42 Nasal Cannula 11/22/18 15:42 Nasal Cannula 11/22/18 12:00 115 11/22/18 12:00 97.2 110 20 139/86 (103) 97 Height (Feet): 5 Height (Inches): 10.00 Weight (Pounds): 143 General Appearance: no acute distress HEENT: mucous membranes moist Respiratory/Chest: lungs clear Cardiovascular: normal rate Abdomen: soft, non tender Extremities: no edema Neurologic/Psychiatric: alert, oriented x 3, responsive Microbiology Date/Time Source Procedure Growth Status 11/21/18 13:55 Blood Blood Culture - Preliminary NO GROWTH AFTER 24 HOURS Resulted 11/21/18 13:40 Blood Blood Culture - Preliminary NO GROWTH AFTER 24 HOURS Resulted 11/21/18 21:15 Nasal Nares Right - Final Complete 11/21/18 21:15 Nasal Nares Right - Final Complete 11/21/18 21:10 Sputum Gram Stain - Final Resulted 11/21/18 21:10 Sputum Sputum Culture - Preliminary NORMAL UPPER RESPIRATORY BRIGETTE AT 24 ... Resulted Laboratory Tests Test 11/23/18 06:18 White Blood Count 17.8 K/UL (4.8-10.8) H Red Blood Count 4.43 M/UL (4.20-5.40) Hemoglobin 12.6 G/DL (12.0-16.0) Hematocrit 37.4 % (37.0-47.0) Mean Corpuscular Volume 84 FL (80-99) Mean Corpuscular Hemoglobin 28.5 PG (27.0-31.0) Mean Corpuscular Hemoglobin Concent 33.8 G/DL (32.0-36.0) Red Cell Distribution Width 11.4 % (11.6-14.8) L Platelet Count 210 K/UL (150-450) Mean Platelet Volume 8.1 FL (6.5-10.1) Neutrophils (%) (Auto) % (45.0-75.0) Lymphocytes (%) (Auto) % (20.0-45.0) Monocytes (%) (Auto) % (1.0-10.0) Eosinophils (%) (Auto) % (0.0-3.0) Basophils (%) (Auto) % (0.0-2.0) Differential Total Cells Counted 100 Neutrophils % (Manual) 86 % (45-75) H Lymphocytes % (Manual) 8 % (20-45) L Monocytes % (Manual) 1 % (1-10) Eosinophils % (Manual) 0 % (0-3) Basophils % (Manual) 0 % (0-2) Band Neutrophils 5 % (0-8) Platelet Estimate Adequate Platelet Morphology Normal Red Blood Cell Morphology Normal Sodium Level 137 MMOL/L (136-145) Potassium Level 4.6 MMOL/L (3.5-5.1) Chloride Level 104 MMOL/L (98-107) Carbon Dioxide Level 25 MMOL/L (21-32) Anion Gap 8 mmol/L (5-15) Blood Urea Nitrogen 19 mg/dL (7-18) H Creatinine 0.7 MG/DL (0.55-1.30) Estimat Glomerular Filtration Rate > 60 mL/min (>60) Glucose Level 196 MG/DL (74-106) H Osmolality 299 mOsm/kg (297-317) Uric Acid 3.0 MG/DL (2.6-7.2) Calcium Level 8.8 MG/DL (8.5-10.1) Phosphorus Level 2.6 MG/DL (2.5-4.9) Magnesium Level 2.0 MG/DL (1.8-2.4) Total Bilirubin 0.1 MG/DL (0.2-1.0) L Aspartate Amino Transf (AST/SGOT) 34 U/L (15-37) Alanine Aminotransferase (ALT/SGPT) 52 U/L (12-78) Alkaline Phosphatase 93 U/L (46-116) C-Reactive Protein, Quantitative 9.0 mg/dL (0.00-0.90) H Pro-B-Type Natriuretic Peptide 979 pg/mL (0-125) H Total Protein 6.9 G/DL (6.4-8.2) Albumin 2.7 G/DL (3.4-5.0) L Globulin 4.2 g/dL Albumin/Globulin Ratio 0.6 (1.0-2.7) L HIV (1&2) Antibody Rapid Negative (NEGATIVE) Current Medications Medications (Trade) Dose Ordered Sig/Heike Route PRN Reason Start Time Stop Time Status Last Admin Dose Admin Acetaminophen (Tylenol) 650 mg Q4H PRN ORAL Mild Pain/Temp > 100.5 11/21/18 18:45 12/21/18 18:44 Acetaminophen/ Hydrocodone Bitart ([place] 5/325) 1 tab Q6H PRN ORAL Moderate Pain (Pain Scale 4-6) 11/21/18 20:30 11/28/18 20:29 11/22/18 22:53 Albuterol/ Ipratropium (Albuterol/ Ipratropium) 3 ml Q4HRT HHN 11/21/18 19:00 11/26/18 18:59 11/23/18 07:52 Azithromycin (Zithromax) 250 mg DAILY ORAL 11/22/18 09:00 11/29/18 08:59 11/23/18 09:33 Ceftriaxone Sodium 1 gm/ Dextrose 55 ml @ 110 mls/hr Q24H IVPB 11/21/18 22:00 11/28/18 21:59 11/22/18 22:42 Dextrose (Dextrose 50%) 25 ml Q30M PRN IV Hypoglycemia 11/22/18 16:45 12/22/18 16:44 Dextrose (Dextrose 50%) 50 ml Q30M PRN IV Hypoglycemia 11/22/18 16:45 12/22/18 16:44 Guaifenesin/ Dextromethorphan (Robitussin DM Syrup) 10 ml Q4H PRN ORAL For Cough 11/23/18 00:00 12/23/18 00:00 11/23/18 00:09 Heparin Sodium (Porcine) (Heparin 5000 units/ml) 5,000 units EVERY 12 HOURS SUBQ 11/21/18 21:00 12/21/18 20:59 11/22/18 20:47 Hydromorphone HCl (Dilaudid) 0.5 mg Q4H PRN IVP Severe Pain (Pain Scale 7-10) 11/21/18 20:30 11/28/18 20:29 Insulin Aspart (NovoLOG) BEFORE MEALS AND HS SUBQ 11/22/18 21:00 12/22/18 20:59 11/23/18 06:25 Lansoprazole (Prevacid) 30 mg DAILY ORAL 11/22/18 21:00 12/22/18 20:59 5/2/19 09:32 Methylprednisolone Sodium Succinate (Solu-MEDROL) 60 mg Q12HR IVP 11/22/18 21:00 12/21/18 21:59 11/23/18 09:33 Ondansetron HCl (Zofran) 4 mg Q8H PRN IVP Nausea & Vomiting 11/21/18 20:30 12/21/18 20:29 Oseltamivir Phosphate (Tamiflu) 75 mg TWICE A DAY ORAL 11/22/18 09:00 11/27/18 08:59 11/23/18 09:33 Pneumococcal Polyvalent Vaccine (Pneumovax) 0.5 ml ONCE ONCE IM 11/22/18 11:30 11/22/18 11:31 UNV Potassium Chloride (K-Dur) 40 meq DAILY ORAL 11/22/18 09:00 12/22/18 08:59 11/23/18 09:32 Sodium Chloride 1,000 ml @ 75 mls/hr [id number] IV 11/22/18 13:07 12/22/18 13:06 11/23/18 01:57 Ross Walker MD November 23, 2018 11:22
[2018-11-23 11:51] VITALS: BP 117/71
--- NOTE | 2018-11-23 12:26 | Nephrology Progress Note ---
Assessment/Plan Problem List: (1) Hypokalemia (2) COPD (chronic obstructive pulmonary disease) (3) Amphetamine abuse Assessment Mild HypoKalemia and HypoNatremia Urine + for Amphetamines- Chronic obstructive pulmonary disease/Asthma Pneumonia Nodular abnormailty right perihilar region Hx of smoking Plan antibiotics PO K supplement Monitor lytes steroid taper per pulmonary ! stable from renal stand will follow as needed Subjective ROS Limited/Unobtainable: No Objective Objective Last 24 Hour Vital Signs Date Time Temp Pulse Resp B/P (MAP) Pulse Ox O2 Delivery O2 Flow Rate FiO2 11/23/18 12:16 Room Air 21 11/23/18 12:16 Room Air 21 11/23/18 11:51 98.1 88 16 117/71 (86) 98 11/23/18 09:00 Nasal Cannula 2.0 11/23/18 08:16 Nasal Cannula 2.0 28 11/23/18 08:16 98 Nasal Cannula 2.0 28 11/23/18 08:15 87 20 99 Nasal Cannula 2.0 28 11/23/18 08:00 98.0 86 16 110/67 (81) 98 11/23/18 08:00 93 11/23/18 07:54 83 20 98 Nasal Cannula 2.0 28 11/23/18 04:20 96.9 94 20 104/65 (78) 97 11/23/18 04:20 87 11/23/18 03:42 107 20 99 Nasal Cannula 2.0 28 11/23/18 03:32 28 11/23/18 03:32 107 20 98 Nasal Cannula 2.0 28 11/23/18 00:00 109 11/23/18 00:00 97.0 106 20 128/78 (95) 96 11/22/18 23:50 102 20 98 Nasal Cannula 2.0 28 11/22/18 23:40 98 22 96 Nasal Cannula 2.0 28 11/22/18 23:40 28 11/22/18 23:23 97.5 11/22/18 21:00 Nasal Cannula 2.0 11/22/18 20:00 97.9 110 18 123/83 (96) 96 11/22/18 20:00 110 11/22/18 19:20 112 20 98 Nasal Cannula 2.0 11/22/18 19:09 111 20 95 Nasal Cannula 2.0 28 11/22/18 19:09 95 Nasal Cannula 2.0 28 11/22/18 19:09 Nasal Cannula 2.0 28 11/22/18 19:09 28 11/22/18 16:00 100 11/22/18 16:00 97.5 102 20 127/75 (92) 97 11/22/18 15:42 Nasal Cannula 11/22/18 15:42 Nasal Cannula Intake and Output 11/22/18 11/23/18 19:00 07:00 Intake Total 750 ml 225 ml Output Total 840 ml Balance -90 ml 225 ml Intake Oral 750 ml IV Total 225 ml Output Urine Total 840 ml # Voids 2 Laboratory Tests 11/23/18 06:18: White Blood Count 17.8H, Red Blood Count 4.43, Hemoglobin 12.6, Hematocrit 37.4 , Mean Corpuscular Volume 84, Mean Corpuscular Hemoglobin 28.5, Mean Corpuscular Hemoglobin Concent 33.8, Red Cell Distribution Width 11.4L, Platelet Count 210, Mean Platelet Volume 8.1, Neutrophils (%) (Auto) , Lymphocytes (%) (Auto) , Monocytes (%) (Auto) , Eosinophils (%) (Auto) , Basophils (%) (Auto) , Differential Total Cells Counted 100, Neutrophils % ( Manual) 86H, Lymphocytes % (Manual) 8L, Monocytes % (Manual) 1, Eosinophils % ( Manual) 0, Basophils % (Manual) 0, Band Neutrophils 5, Platelet Estimate Adequate, Platelet Morphology Normal, Red Blood Cell Morphology Normal, Sodium Level 137, Potassium Level 4.6, Chloride Level 104, Carbon Dioxide Level 25, Anion Gap 8, Blood Urea Nitrogen 19H, Creatinine 0.7, Estimat Glomerular Filtration Rate > 60, Glucose Level 196H, Osmolality 299, Uric Acid 3.0, Calcium Level 8.8, Phosphorus Level 2.6, Magnesium Level 2.0, Total Bilirubin 0.1L, Aspartate Amino Transf (AST/SGOT) 34, Alanine Aminotransferase (ALT/SGPT) 52, Alkaline Phosphatase 93, C-Reactive Protein, Quantitative 9.0H, Pro-B-Type Natriuretic Peptide 979H, Total Protein 6.9, Albumin 2.7L, Globulin 4.2, Albumin /Globulin Ratio 0.6L, HIV (1&2) Antibody Rapid Negative Height (Feet): 5 Height (Inches): 10.00 Weight (Pounds): 143 General Appearance: no apparent distress Cardiovascular: normal rate Respiratory/Chest: decreased breath sounds Abdomen: soft Donal Mooney MD November 23, 2018 12:26
--- NOTE | 2018-11-23 12:42 | NUR ---
CASE MANAGEMENT:REVIEW 11/23/18 SI: PNEUMONIA. COPD 98.1 88 16 117/71 98% 2L/NC WBC+17.8 IS: IV SOLUMEDROL Q12 IV ROCEPHIN Q24 IVF@75/HR PROTONIX PO Q12 : MED/SURG STATUS
--- NOTE | 2018-11-23 14:43 | Cardiology Report ---
APPROVED REPORT EKG Measurement Heart [id number] Normal sinus rhythm Possible Left atrial enlargement Borderline ECG
[2018-11-23 16:00] VITALS: BP 156/74
[2018-11-23 20:00] VITALS: BP 127/85
--- NOTE | 2018-11-23 20:04 | NUR ---
HAND-OFF: Report given to Marilynn TAPIA. Pt remains stable..
--- NOTE | 2018-11-23 20:12 | NUR ---
NURSE NOTES: Received report from REGINA Kent. Patient is awake lying semi-goldsmith's; resting comfortably. No signs of acute distress noted; complains of pain. On 2L nasal cannula. AOx4; able to make needs known. Checked IV site, lines, and IV rate; patent and running. No erythema, bleeding, or infiltration noted. Bed at lowest position, brakes on, siderails up x2. Call light within reach. Will continue to monitor.
--- NOTE | 2018-11-23 21:08 | General Progress Note ---
Assessment/Plan Problem List: (1) Hypokalemia ICD Codes: E87.6 - Hypokalemia SNOMED: 80673556 (2) COPD (chronic obstructive pulmonary disease) ICD Codes: J44.9 - Chronic obstructive pulmonary disease, unspecified SNOMED: 80686620 Status: progressing Assessment/Plan: afebrile nac copd no wheezing lyte abnormality Subjective ROS Limited/Unobtainable: Yes Allergies: Coded Allergies: No Known Allergies (Unverified , 11/21/18) Objective Last 24 Hour Vital Signs Date Time Temp Pulse Resp B/P (MAP) Pulse Ox O2 Delivery O2 Flow Rate FiO2 11/23/18 19:48 99 18 99 Nasal Cannula 2.0 11/23/18 19:38 90 20 95 Nasal Cannula 2.0 11/23/18 19:38 Nasal Cannula 2.0 11/23/18 19:38 95 Nasal Cannula 2.0 11/23/18 16:00 80 11/23/18 16:00 98.3 88 16 156/74 (101) 98 11/23/18 15:35 97 16 98 Room Air 21 11/23/18 15:25 85 16 95 Room Air 21 11/23/18 12:16 Room Air 21 11/23/18 12:16 Room Air 21 11/23/18 12:00 89 11/23/18 11:51 98.1 88 16 117/71 (86) 98 11/23/18 09:00 Nasal Cannula 2.0 11/23/18 08:16 Nasal Cannula 2.0 11/23/18 08:16 98 Nasal Cannula 2.0 11/23/18 08:15 87 20 99 Nasal Cannula 2.0 11/23/18 08:00 98.0 86 16 110/67 (81) 98 11/23/18 08:00 93 11/23/18 07:54 83 20 98 Nasal Cannula 2.0 11/23/18 04:20 96.9 94 20 104/65 (78) 97 11/23/18 04:20 87 11/23/18 03:42 107 20 99 Nasal Cannula 2.0 11/23/18 03:32 28 11/23/18 03:32 107 20 98 Nasal Cannula 2.0 11/23/18 00:00 109 11/23/18 00:00 97.0 106 20 128/78 (95) 96 11/22/18 23:50 102 20 98 Nasal Cannula 2.0 28 11/22/18 23:40 98 22 96 Nasal Cannula 2.0 28 11/22/18 23:40 28 11/22/18 23:23 97.5 Intake and Output 11/22/18 11/23/18 19:00 07:00 Intake Total 750 ml 225 ml Output Total 840 ml Balance -90 ml 225 ml Intake Oral 750 ml IV Total 225 ml Output Urine Total 840 ml # Voids 2 Laboratory Tests 11/23/18 06:18: White Blood Count 17.8H, Red Blood Count 4.43, Hemoglobin 12.6, Hematocrit 37.4 , Mean Corpuscular Volume 84, Mean Corpuscular Hemoglobin 28.5, Mean Corpuscular Hemoglobin Concent 33.8, Red Cell Distribution Width 11.4L, Platelet Count 210, Mean Platelet Volume 8.1, Neutrophils (%) (Auto) , Lymphocytes (%) (Auto) , Monocytes (%) (Auto) , Eosinophils (%) (Auto) , Basophils (%) (Auto) , Differential Total Cells Counted 100, Neutrophils % ( Manual) 86H, Lymphocytes % (Manual) 8L, Monocytes % (Manual) 1, Eosinophils % ( Manual) 0, Basophils % (Manual) 0, Band Neutrophils 5, Platelet Estimate Adequate, Platelet Morphology Normal, Red Blood Cell Morphology Normal, Sodium Level 137, Potassium Level 4.6, Chloride Level 104, Carbon Dioxide Level 25, Anion Gap 8, Blood Urea Nitrogen 19H, Creatinine 0.7, Estimat Glomerular Filtration Rate > 60, Glucose Level 196H, Osmolality 299, Uric Acid 3.0, Calcium Level 8.8, Phosphorus Level 2.6, Magnesium Level 2.0, Total Bilirubin 0.1L, Aspartate Amino Transf (AST/SGOT) 34, Alanine Aminotransferase (ALT/SGPT) 52, Alkaline Phosphatase 93, C-Reactive Protein, Quantitative 9.0H, Pro-B-Type Natriuretic Peptide 979H, Total Protein 6.9, Albumin 2.7L, Globulin 4.2, Albumin /Globulin Ratio 0.6L, HIV (1&2) Antibody Rapid Negative Height (Feet): 5 Height (Inches): 10.00 Weight (Pounds): 143 EENT: PERRL/EOMI Neck: supple Cardiovascular: normal rate Respiratory/Chest: lungs clear Addison Hernandez MD November 23, 2018 21:08
[2018-11-23] MEDS: cefTRIAXone 1 GM in D5W 55 ML IVPB SCH (22:06)
[2018-11-23] MEDS: HYDROcodone/Acetamin 5/325 tab ORAL PRN (22:41)
[2018-11-24] VITALS: BP 110/80
[2018-11-24] MEDS: Albuterol/Ipratropium 3ml neb HHN SCH ×6 (03:37→23:34)
--- NOTE | 2018-11-24 03:51 | NUR ---
NURSE NOTES: Patient is asleep lying semi-goldsmith's; resting comfortably. No signs of acute distress or pain noted at this time.
[2018-11-24 04:00] VITALS: BP 116/76
[2018-11-24] MEDS: NovoLOG Insulin Flexpen SUBQ SCH ×4 (05:39→21:00)
[2018-11-24 07:02] LABS: HEMOGLOBIN 12.5 G/DL (12.0-16.0); MEAN CORPUSCULAR VOLUME 85 FL (80-99); PLATELET COUNT 216 K/UL (150-450); RED BLOOD COUNT 4.37 M/UL (4.20-5.40); RED CELL DISTRIBUTION WIDTH 11.6 % (11.6-14.8); WHITE BLOOD COUNT 16.6 K/UL (4.8-10.8)
--- NOTE | 2018-11-24 07:15 | NUR ---
NURSE NOTES: Received report from Marilynn TAPIA. Pt in bed asleep but responsive to verbal. AOx4 and verbally responsive. On RA. IV LFA 24G with NS@75ml/hr. No c/o pain. No signs of distress noted. Bed in lowest position and locked. side rails upx2. Will continue to plan of care.
--- NOTE | 2018-11-24 07:15 | NUR ---
HAND-OFF: Report given to REGINA Kent. Patient is asleep lying semi-goldsmith's; resting comfortably. In stable condition.
[2018-11-24 07:32] LABS: ALANINE AMINOTRANSFERASE 59 U/L (12-78); ALBUMIN 2.6 G/DL (3.4-5.0); ALBUMIN/GLOBULIN RATIO 0.7 (1.0-2.7); ALKALINE PHOSPHATASE 93 U/L (46-116); ANION GAP 7 mmol/L (5-15); ASPARTATE AMINO TRANSFERASE 37 U/L (15-37); BILIRUBIN,TOTAL 0.1 MG/DL (0.2-1.0); BLOOD UREA NITROGEN 16 mg/dL (7-18); CALCIUM 8.3 MG/DL (8.5-10.1); CARBON DIOXIDE 27 MMOL/L (21-32); CHLORIDE 105 MMOL/L (98-107); CREATININE 0.6 MG/DL (0.55-1.30); POTASSIUM 4.4 MMOL/L (3.5-5.1); SODIUM 139 MMOL/L (136-145)
[2018-11-24 08:00] VITALS: BP 122/75
[2018-11-24] MEDS: Azithromycin 250mg tab ORAL SCH (08:23)
[2018-11-24] MEDS: Oseltamivir 75mg cap ORAL SCH ×2 (08:23→17:22)
[2018-11-24] MEDS: Guaifenesin/DM 10ml syrup ORAL PRN ×2 (08:23→22:08)
[2018-11-24] MEDS: Solu-MEDROL 125mg Inj IVP SCH ×2 (08:23→22:09)
[2018-11-24] MEDS: HYDROcodone/Acetamin 5/325 tab ORAL PRN ×2 (08:24→22:09)
[2018-11-24] MEDS: Heparin 5000 units/ml inj SUBQ SCH ×2 (08:25→22:06)
--- NOTE | 2018-11-24 09:29 | Infectious Diseases Prog Note ---
Assessment/Plan Assessment/Plan IMPRESSION: Sepsis pneumonia. chronic obstructive pulmonary disease exacerbation nicotine dependence, methamphetamine abuse, alcohol abuse. Leukocytosis likely steroid related RECOMMENDATION: will continue with Zithromax and Rocephin in hospital at time of discharge to [facility] to finish 7 days treatment F/U CXR after discharge Subjective ROS Limited/Unobtainable: Yes Constitutional: Reports: no symptoms Allergies: Coded Allergies: No Known Allergies (Unverified , 11/21/18) Objective Vital Signs Last 24 Hour Vital Signs Date Time Temp Pulse Resp B/P (MAP) Pulse Ox O2 Delivery O2 Flow Rate FiO2 11/24/18 08:00 99.0 89 20 122/75 (91) 97 11/24/18 07:53 95 Nasal Cannula 2.0 28 11/24/18 07:53 Nasal Cannula 2.0 28 11/24/18 07:53 Nasal Cannula 2.0 28 11/24/18 07:52 Nasal Cannula 2.0 28 11/24/18 04:00 97.5 78 20 116/76 (89) 99 11/24/18 04:00 78 11/24/18 03:47 91 18 98 Nasal Cannula 2.0 28 11/24/18 03:37 78 18 96 Nasal Cannula 2.0 28 11/24/18 00:00 98.0 90 20 110/80 (90) 96 11/24/18 00:00 80 11/23/18 23:33 Nasal Cannula 2.0 28 11/23/18 23:33 Nasal Cannula 2.0 28 11/23/18 21:00 Nasal Cannula 2.0 11/23/18 20:00 99.0 89 20 127/85 (99) 97 11/23/18 20:00 94 11/23/18 19:48 99 18 99 Nasal Cannula 2.0 28 11/23/18 19:38 90 20 95 Nasal Cannula 2.0 28 11/23/18 19:38 Nasal Cannula 2.0 28 11/23/18 19:38 95 Nasal Cannula 2.0 28 11/23/18 16:00 80 11/23/18 16:00 98.3 88 16 156/74 (101) 98 11/23/18 15:35 97 16 98 Room Air 21 11/23/18 15:25 85 16 95 Room Air 21 11/23/18 12:16 Room Air 21 11/23/18 12:16 Room Air 21 11/23/18 12:00 89 11/23/18 11:51 98.1 88 16 117/71 (86) 98 Height (Feet): 5 Height (Inches): 10.00 Weight (Pounds): 143 General Appearance: no acute distress HEENT: mucous membranes moist Respiratory/Chest: lungs clear Cardiovascular: normal rate Abdomen: soft, non tender Extremities: no edema Neurologic/Psychiatric: other - sleeping Microbiology Date/Time Source Procedure Growth Status 11/21/18 13:55 Blood Blood Culture - Preliminary NO GROWTH AFTER 48 HOURS Resulted 11/21/18 13:40 Blood Blood Culture - Preliminary NO GROWTH AFTER 48 HOURS Resulted 11/21/18 21:15 Nasal Nares Right - Final Complete 11/21/18 21:15 Nasal Nares Right - Final Complete 11/21/18 21:10 Sputum Gram Stain - Final Complete 11/21/18 21:10 Sputum Sputum Culture - Final NORMAL UPPER RESPIRATORY BRIGETTE PRESENT Complete Laboratory Tests Test 11/24/18 06:30 White Blood Count 16.6 K/UL (4.8-10.8) H Red Blood Count 4.37 M/UL (4.20-5.40) Hemoglobin 12.5 G/DL (12.0-16.0) Hematocrit 37.0 % (37.0-47.0) Mean Corpuscular Volume 85 FL (80-99) Mean Corpuscular Hemoglobin 28.6 PG (27.0-31.0) Mean Corpuscular Hemoglobin Concent 33.8 G/DL (32.0-36.0) Red Cell Distribution Width 11.6 % (11.6-14.8) Platelet Count 216 K/UL (150-450) Mean Platelet Volume 6.9 FL (6.5-10.1) Neutrophils (%) (Auto) % (45.0-75.0) Lymphocytes (%) (Auto) % (20.0-45.0) Monocytes (%) (Auto) % (1.0-10.0) Eosinophils (%) (Auto) % (0.0-3.0) Basophils (%) (Auto) % (0.0-2.0) Differential Total Cells Counted 100 Neutrophils % (Manual) 86 % (45-75) H Lymphocytes % (Manual) 9 % (20-45) L Monocytes % (Manual) 5 % (1-10) Eosinophils % (Manual) 0 % (0-3) Basophils % (Manual) 0 % (0-2) Band Neutrophils 0 % (0-8) Platelet Estimate Adequate Platelet Morphology Normal Red Blood Cell Morphology Normal Sodium Level 139 MMOL/L (136-145) Potassium Level 4.4 MMOL/L (3.5-5.1) Chloride Level 105 MMOL/L (98-107) Carbon Dioxide Level 27 MMOL/L (21-32) Anion Gap 7 mmol/L (5-15) Blood Urea Nitrogen 16 mg/dL (7-18) Creatinine 0.6 MG/DL (0.55-1.30) Estimat Glomerular Filtration Rate > 60 mL/min (>60) Glucose Level 196 MG/DL (74-106) H Calcium Level 8.3 MG/DL (8.5-10.1) L Total Bilirubin 0.1 MG/DL (0.2-1.0) L Aspartate Amino Transf (AST/SGOT) 37 U/L (15-37) Alanine Aminotransferase (ALT/SGPT) 59 U/L (12-78) Alkaline Phosphatase 93 U/L (46-116) Total Protein 6.3 G/DL (6.4-8.2) L Albumin 2.6 G/DL (3.4-5.0) L Globulin 3.7 g/dL Albumin/Globulin Ratio 0.7 (1.0-2.7) L Current Medications Medications (Trade) Dose Ordered Sig/Heike Route PRN Reason Start Time Stop Time Status Last Admin Dose Admin Acetaminophen (Tylenol) 650 mg Q4H PRN ORAL Mild Pain/Temp > 100.5 11/21/18 18:45 12/21/18 18:44 Acetaminophen/ Hydrocodone Bitart ([place] 5/325) 1 tab Q6H PRN ORAL Moderate Pain (Pain Scale 4-6) 11/21/18 20:30 11/28/18 20:29 11/24/18 08:24 Albuterol/ Ipratropium (Albuterol/ Ipratropium) 3 ml Q4HRT HHN 11/21/18 19:00 11/26/18 18:59 11/24/18 03:37 Azithromycin (Zithromax) 250 mg DAILY ORAL 11/22/18 09:00 11/29/18 08:59 11/24/18 08:23 Ceftriaxone Sodium 1 gm/ Dextrose 55 ml @ 110 mls/hr Q24H IVPB 11/21/18 22:00 11/28/18 21:59 11/23/18 22:06 Dextrose (Dextrose 50%) 25 ml Q30M PRN IV Hypoglycemia 11/22/18 16:45 12/22/18 16:44 Dextrose (Dextrose 50%) 50 ml Q30M PRN IV Hypoglycemia 11/22/18 16:45 12/22/18 16:44 Guaifenesin/ Dextromethorphan (Robitussin DM Syrup) 10 ml Q4H PRN ORAL For Cough 11/23/18 00:00 12/23/18 00:00 11/24/18 08:23 Heparin Sodium (Porcine) (Heparin 5000 units/ml) 5,000 units EVERY 12 HOURS SUBQ 11/21/18 21:00 12/21/18 20:59 11/24/18 08:25 Hydromorphone HCl (Dilaudid) 0.5 mg Q4H PRN IVP Severe Pain (Pain Scale 7-10) 11/21/18 20:30 11/28/18 20:29 Insulin Aspart (NovoLOG) BEFORE MEALS AND HS SUBQ 11/22/18 21:00 12/22/18 20:59 11/24/18 05:39 Methylprednisolone Sodium Succinate (Solu-MEDROL) 60 mg Q12HR IVP 11/22/18 21:00 12/21/18 21:59 11/24/18 08:23 Ondansetron HCl (Zofran) 4 mg Q8H PRN IVP Nausea & Vomiting 11/21/18 20:30 12/21/18 20:29 Oseltamivir Phosphate (Tamiflu) 75 mg TWICE A DAY ORAL 11/22/18 09:00 11/27/18 08:59 11/24/18 08:23 Pantoprazole (Protonix) 40 mg EVERY 12 HOURS ORAL 11/23/18 21:00 12/23/18 20:59 11/24/18 08:24 Pneumococcal Polyvalent Vaccine (Pneumovax) 0.5 ml ONCE ONCE IM 11/22/18 11:30 11/22/18 11:31 UNV Potassium Chloride (K-Dur) 40 meq DAILY ORAL 11/22/18 09:00 12/22/18 08:59 11/24/18 08:23 Sodium Chloride 1,000 ml @ 75 mls/hr [id number] IV 11/22/18 13:07 12/22/18 13:06 11/24/18 05:38 Ross Walker MD November 24, 2018 09:29
[2018-11-24 12:00] VITALS: BP 124/81
--- NOTE | 2018-11-24 13:23 | GI Initial Consult Note ---
History of Present Illness General Date patient seen: November 24, 2018 Time patient seen: 13:15 Reason for Hospitalization: Dyspnea/Respdistress Referring physician: JACOB BARRIOS Reason for Consultation: ABDOMINAL PAIN Present Illness HPI Patient present his cough and difficulty breathing for 3 days.. Patient reports having a prior history of COPD. She states she is a former smoker and quit approximately 6 months ago. She states she recently moved to this area from [place]. She denies any having a primary care physician. She reports having increased productive cough. States she has prior history of bronchitis.Reports of increased generalized body aches. GI consulted for abdominal pain. Pt seen, awake A&O x 4 has c/o of severe epigastric and LUQ pain. States it is more severe when she coughs. The patient does not recall the initial onset of her symptoms. Presents today with leukocytosis. No anemia nor transaminitis noted. No history of endoscopy or colonoscopy. Med list reviewed/reconciled: Yes Allergies: Coded Allergies: No Known Allergies (Unverified , 11/21/18) Patient History History Provided By: Patient, Medical Record [facility] Narrative Past Medical History: No History, Except For Hx Asthma: Yes Hx COPD: Yes Social History: Reports: drug use Review of Systems All Other Systems: negative except mentioned in HPI Physical Exam Vital Signs Date Time Temp Pulse Resp B/P (MAP) Pulse Ox O2 Delivery O2 Flow Rate FiO2 11/21/18 13:17 98.2 107 22 102/64 90 Room Air 11/21/18 13:29 94 11/21/18 21:00 2.0 Sp02 EP Interpretation: reviewed, normal Labs Laboratory Tests Test 11/24/18 06:30 White Blood Count 16.6 K/UL (4.8-10.8) H Red Blood Count 4.37 M/UL (4.20-5.40) Hemoglobin 12.5 G/DL (12.0-16.0) Hematocrit 37.0 % (37.0-47.0) Mean Corpuscular Volume 85 FL (80-99) Mean Corpuscular Hemoglobin 28.6 PG (27.0-31.0) Mean Corpuscular Hemoglobin Concent 33.8 G/DL (32.0-36.0) Red Cell Distribution Width 11.6 % (11.6-14.8) Platelet Count 216 K/UL (150-450) Mean Platelet Volume 6.9 FL (6.5-10.1) Neutrophils (%) (Auto) % (45.0-75.0) Lymphocytes (%) (Auto) % (20.0-45.0) Monocytes (%) (Auto) % (1.0-10.0) Eosinophils (%) (Auto) % (0.0-3.0) Basophils (%) (Auto) % (0.0-2.0) Differential Total Cells Counted 100 Neutrophils % (Manual) 86 % (45-75) H Lymphocytes % (Manual) 9 % (20-45) L Monocytes % (Manual) 5 % (1-10) Eosinophils % (Manual) 0 % (0-3) Basophils % (Manual) 0 % (0-2) Band Neutrophils 0 % (0-8) Platelet Estimate Adequate Platelet Morphology Normal Red Blood Cell Morphology Normal Sodium Level 139 MMOL/L (136-145) Potassium Level 4.4 MMOL/L (3.5-5.1) Chloride Level 105 MMOL/L (98-107) Carbon Dioxide Level 27 MMOL/L (21-32) Anion Gap 7 mmol/L (5-15) Blood Urea Nitrogen 16 mg/dL (7-18) Creatinine 0.6 MG/DL (0.55-1.30) Estimat Glomerular Filtration Rate > 60 mL/min (>60) Glucose Level 196 MG/DL (74-106) H Calcium Level 8.3 MG/DL (8.5-10.1) L Total Bilirubin 0.1 MG/DL (0.2-1.0) L Aspartate Amino Transf (AST/SGOT) 37 U/L (15-37) Alanine Aminotransferase (ALT/SGPT) 59 U/L (12-78) Alkaline Phosphatase 93 U/L (46-116) Total Protein 6.3 G/DL (6.4-8.2) L Albumin 2.6 G/DL (3.4-5.0) L Globulin 3.7 g/dL Albumin/Globulin Ratio 0.7 (1.0-2.7) L General Appearance: well appearing, no apparent distress, alert Head: normocephalic EENT: PERRL/EOMI, normal ENT inspection Neck: supple Respiratory: normal breath sounds, no respiratory distress Cardiovascular: normal rate Gastrointestinal: normal inspection, non tender, soft, normal bowel sounds, non -distended Rectal: deferred Genitourinary: no CVA tenderness Musculoskeletal: normal inspection, back normal Neurologic: normal inspection, alert, oriented x3, responsive Psychiatric: normal inspection, judgement/insight normal, memory normal Skin: normal inspection, normal color, no rash, warm/dry, palpation normal, well hydrated Lymphatic: normal inspection, no adenopathy Current Medications Current Medications Medications (Trade) Dose Ordered Sig/Heike Route PRN Reason Start Time Stop Time Status Last Admin Dose Admin Acetaminophen (Tylenol) 650 mg Q4H PRN ORAL Mild Pain/Temp > 100.5 11/21/18 18:45 12/21/18 18:44 Acetaminophen/ Hydrocodone Bitart ([place] 5/325) 1 tab Q6H PRN ORAL Moderate Pain (Pain Scale 4-6) 11/21/18 20:30 11/28/18 20:29 11/24/18 08:24 Albuterol/ Ipratropium (Albuterol/ Ipratropium) 3 ml Q4HRT HHN 11/21/18 19:00 11/26/18 18:59 11/24/18 03:37 Azithromycin (Zithromax) 250 mg DAILY ORAL 11/22/18 09:00 11/29/18 08:59 11/24/18 08:23 Ceftriaxone Sodium 1 gm/ Dextrose 55 ml @ 110 mls/hr Q24H IVPB 11/21/18 22:00 11/28/18 21:59 11/23/18 22:06 Dextrose (Dextrose 50%) 25 ml Q30M PRN IV Hypoglycemia 11/22/18 16:45 12/22/18 16:44 Dextrose (Dextrose 50%) 50 ml Q30M PRN IV Hypoglycemia 11/22/18 16:45 12/22/18 16:44 Guaifenesin/ Dextromethorphan (Robitussin DM Syrup) 10 ml Q4H PRN ORAL For Cough 11/23/18 00:00 12/23/18 00:00 11/24/18 08:23 Heparin Sodium (Porcine) (Heparin 5000 units/ml) 5,000 units EVERY 12 HOURS SUBQ 11/21/18 21:00 12/21/18 20:59 11/24/18 08:25 Hydromorphone HCl (Dilaudid) 0.5 mg Q4H PRN IVP Severe Pain (Pain Scale 7-10) 11/21/18 20:30 11/28/18 20:29 Insulin Aspart (NovoLOG) BEFORE MEALS AND HS SUBQ 11/22/18 21:00 12/22/18 20:59 11/24/18 12:29 Methylprednisolone Sodium Succinate (Solu-MEDROL) 60 mg Q12HR IVP 11/22/18 21:00 12/21/18 21:59 11/24/18 08:23 Ondansetron HCl (Zofran) 4 mg Q8H PRN IVP Nausea & Vomiting 11/21/18 20:30 12/21/18 20:29 Oseltamivir Phosphate (Tamiflu) 75 mg TWICE A DAY ORAL 11/22/18 09:00 11/27/18 08:59 11/24/18 08:23 Pantoprazole (Protonix) 40 mg EVERY 12 HOURS ORAL 11/23/18 21:00 12/23/18 20:59 11/24/18 08:24 Pneumococcal Polyvalent Vaccine (Pneumovax) 0.5 ml ONCE ONCE IM 11/22/18 11:30 11/22/18 11:31 UNV Potassium Chloride (K-Dur) 40 meq DAILY ORAL 11/22/18 09:00 12/22/18 08:59 11/24/18 08:23 Sodium Chloride 1,000 ml @ 75 mls/hr [id number] IV 11/22/18 13:07 12/22/18 13:06 11/24/18 05:38 GI: Plan Problems: (1) Abdominal pain (2) Amphetamine abuse (3) COPD (chronic obstructive pulmonary disease) (4) GERD (gastroesophageal reflux disease) Plan will consider endoscopy if patient has persistent epigastric pain unrelieved by medical management advance diet as tolerated ppi daily, will add Carafate Phenergan prn zofran prn pain mgmt follow labs, lipase Discussed with Dr. Lynch. Thank you for this patient referral, we will follow. The patient was seen and examined at bedside and all new and available data was reviewed in the patients chart. I agree with the above findings, impression and plan. (Patient seen earlier today. Signature stamp does not reflect patient encounter time.). - MD Joey Gilliamuyen,[facility] CenterMartínez MIXER DRIVER November 24, 2018 13:23
[2018-11-24] MEDS ORDERED: Promethazine 25mg tab ORAL PRN (13:30)
--- NOTE | 2018-11-24 14:59 | NUR ---
CASE MANAGEMENT:REVIEW 11/24/18 SI: SEPSIS. PNA. COPD 97.5 78 17 124/81 94% ON 2L/NC WBC+16.6 IS: IV SOLUMEDROL 60MG Q12 IV ROCEPHIN Q24 IVF@75/HR DUONEB HHN Q4HRS RTC : TELEMETRY STATUS DCP: PATIENT IS FROM HOME
--- NOTE | 2018-11-24 15:08 | NUR ---
Social Work This Sw received a consult to assist with a home safety evaluation (patient also is positive for amphetamines). This Sw met with patient who explains she lives in her [facility] in [place] ("for 150 dollars per day"). Patient denied substance abuse (Meth), stating she has only been drinking alcohol "three per day." Patient insisting that she can be discharged today, crying to this SW that she is concerned someone will steal her belongings at the [facility] (formerly [facility]3]. This SW informed nursing. This SW provided the following resources: substance abuse treatment, mental health follow up (for counseling and possible antidepressants needed; patient admitting to feelings of depression at times, denied suicidal ideations currently), housing and homeless resources, [facility] and [facility] (does not have any insurance; applied for [facility] here, with financial counselor). 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 Patient expressing she does not have any close relationships in [place] (daughter, Katherine lives with her father in [place], [place], and her son, Froilan was deployed). Patient stating her parents recently moved to [place], mentioning she might move there to assist them, as needed. Patient explains she plans to return to the [facility] ([facility]3], where she was living prior to admission (friend to provide transportation).
[2018-11-24 16:00] VITALS: BP 126/82
--- NOTE | 2018-11-24 16:27 | Nephrology Progress Note ---
Assessment/Plan Problem List: (1) Hypokalemia (2) COPD (chronic obstructive pulmonary disease) (3) Amphetamine abuse Assessment stable from renal stand Mild HypoKalemia and HypoNatremia Urine + for Amphetamines- Chronic obstructive pulmonary disease/Asthma Pneumonia Nodular abnormailty right perihilar region Hx of smoking Plan antibiotics PO K supplement Monitor lytes steroid taper per pulmonary ! stable from renal stand will follow as needed Subjective ROS Limited/Unobtainable: No Constitutional: Reports: malaise Objective Objective Last 24 Hour Vital Signs Date Time Temp Pulse Resp B/P (MAP) Pulse Ox O2 Delivery O2 Flow Rate FiO2 11/24/18 15:00 Nasal Cannula 2.0 28 11/24/18 15:00 Nasal Cannula 2.0 28 11/24/18 12:00 86 11/24/18 12:00 97.5 78 17 124/81 (95) 94 11/24/18 11:20 Nasal Cannula 2.0 28 11/24/18 11:20 Nasal Cannula 2.0 28 11/24/18 09:00 Nasal Cannula 2.0 Nasal Cannula 2.0 11/24/18 08:00 102 11/24/18 08:00 99.0 89 20 122/75 (91) 97 11/24/18 07:53 95 Nasal Cannula 2.0 11/24/18 07:53 Nasal Cannula 2.0 11/24/18 07:53 Nasal Cannula 2.0 11/24/18 07:52 Nasal Cannula 2.0 28 11/24/18 04:00 97.5 78 20 116/76 (89) 99 11/24/18 04:00 78 11/24/18 03:47 91 18 98 Nasal Cannula 2.0 28 11/24/18 03:37 78 18 96 Nasal Cannula 2.0 28 11/24/18 00:00 98.0 90 20 110/80 (90) 96 11/24/18 00:00 80 11/23/18 23:33 Nasal Cannula 2.0 28 11/23/18 23:33 Nasal Cannula 2.0 28 11/23/18 21:00 Nasal Cannula 2.0 11/23/18 20:00 99.0 89 20 127/85 (99) 97 11/23/18 20:00 94 11/23/18 19:48 99 18 99 Nasal Cannula 2.0 28 11/23/18 19:38 90 20 95 Nasal Cannula 2.0 28 11/23/18 19:38 Nasal Cannula 2.0 28 11/23/18 19:38 95 Nasal Cannula 2.0 28 Intake and Output 11/23/18 11/24/18 18:59 06:59 Intake Total 2695 ml 927 ml Balance 2695 ml 927 ml Intake Oral 1500 ml 120 ml IV Total 1195 ml 807 ml Laboratory Tests 11/24/18 06:30: White Blood Count 16.6H, Red Blood Count 4.37, Hemoglobin 12.5, Hematocrit 37.0 , Mean Corpuscular Volume 85, Mean Corpuscular Hemoglobin 28.6, Mean Corpuscular Hemoglobin Concent 33.8, Red Cell Distribution Width 11.6, Platelet Count 216, Mean Platelet Volume 6.9, Neutrophils (%) (Auto) , Lymphocytes (%) ( Auto) , Monocytes (%) (Auto) , Eosinophils (%) (Auto) , Basophils (%) (Auto) , Differential Total Cells Counted 100, Neutrophils % (Manual) 86H, Lymphocytes % (Manual) 9L, Monocytes % (Manual) 5, Eosinophils % (Manual) 0, Basophils % ( Manual) 0, Band Neutrophils 0, Platelet Estimate Adequate, Platelet Morphology Normal, Red Blood Cell Morphology Normal, Sodium Level 139, Potassium Level 4.4 , Chloride Level 105, Carbon Dioxide Level 27, Anion Gap 7, Blood Urea Nitrogen 16, Creatinine 0.6, Estimat Glomerular Filtration Rate > 60, Glucose Level 196H , Calcium Level 8.3L, Total Bilirubin 0.1L, Aspartate Amino Transf (AST/SGOT) 37 , Alanine Aminotransferase (ALT/SGPT) 59, Alkaline Phosphatase 93, Total Protein 6.3L, Albumin 2.6L, Globulin 3.7, Albumin/Globulin Ratio 0.7L Height (Feet): 5 Height (Inches): 10.00 Weight (Pounds): 143 General Appearance: no apparent distress Cardiovascular: normal rate Respiratory/Chest: decreased breath sounds Abdomen: soft Donal Mooney MD November 24, 2018 16:27
[2018-11-24] MEDS: Sucralfate 1gm tab ORAL SCH (17:22)
--- NOTE | 2018-11-24 19:40 | NUR ---
HAND-OFF: Report given to Aditya TAPIA. Pt remains stable..
--- NOTE | 2018-11-24 19:41 | NUR ---
NURSE NOTES: Got report from Min RN. Pt in stable condition. Denies any pain.. No s/s of distress or discomfort noted. Pt resting in bed comfortably. Bed in low and locked position, call light within reach, bedside table within reach. Continue to monitor.
[2018-11-24 20:00] VITALS: BP 125/75
--- NOTE | 2018-11-24 20:46 | General Progress Note ---
Assessment/Plan Problem List: (1) Hypokalemia ICD Codes: E87.6 - Hypokalemia SNOMED: 07655938 (2) COPD (chronic obstructive pulmonary disease) ICD Codes: J44.9 - Chronic obstructive pulmonary disease, unspecified SNOMED: 93230139 Status: progressing Assessment/Plan: afebrile nac copd no wheezing lyte abnormality still has sob epigastric tenderness.consulted dr buck maya abnormality Subjective ROS Limited/Unobtainable: Yes Respiratory: Reports: shortness of breath Allergies: Coded Allergies: No Known Allergies (Unverified , 11/21/18) Objective Last 24 Hour Vital Signs Date Time Temp Pulse Resp B/P (MAP) Pulse Ox O2 Delivery O2 Flow Rate FiO2 11/24/18 20:04 95 20 99 Nasal Cannula 2.0 28 11/24/18 19:54 83 18 97 Nasal Cannula 2.0 28 11/24/18 19:54 Nasal Cannula 2.0 28 11/24/18 19:54 97 Nasal Cannula 2.0 28 11/24/18 16:00 98.4 82 17 126/82 (97) 96 11/24/18 16:00 76 11/24/18 15:00 Nasal Cannula 2.0 28 11/24/18 15:00 Nasal Cannula 2.0 28 11/24/18 12:00 86 11/24/18 12:00 97.5 78 17 124/81 (95) 94 11/24/18 11:20 Nasal Cannula 2.0 28 11/24/18 11:20 Nasal Cannula 2.0 28 11/24/18 09:00 Nasal Cannula 2.0 Nasal Cannula 2.0 11/24/18 08:00 102 11/24/18 08:00 99.0 89 20 122/75 (91) 97 11/24/18 07:53 95 Nasal Cannula 2.0 11/24/18 07:53 Nasal Cannula 2.0 28 11/24/18 07:53 Nasal Cannula 2.0 28 11/24/18 07:52 Nasal Cannula 2.0 28 11/24/18 04:00 97.5 78 20 116/76 (89) 99 11/24/18 04:00 78 11/24/18 03:47 91 18 98 Nasal Cannula 2.0 28 11/24/18 03:37 78 18 96 Nasal Cannula 2.0 28 11/24/18 00:00 98.0 90 20 110/80 (90) 96 11/24/18 00:00 80 11/23/18 23:33 Nasal Cannula 2.0 28 11/23/18 23:33 Nasal Cannula 2.0 28 11/23/18 21:00 Nasal Cannula 2.0 Intake and Output 11/23/18 11/24/18 18:59 06:59 Intake Total 2695 ml 927 ml Balance 2695 ml 927 ml Intake Oral 1500 ml 120 ml IV Total 1195 ml 807 ml Laboratory Tests 11/24/18 06:30: White Blood Count 16.6H, Red Blood Count 4.37, Hemoglobin 12.5, Hematocrit 37.0 , Mean Corpuscular Volume 85, Mean Corpuscular Hemoglobin 28.6, Mean Corpuscular Hemoglobin Concent 33.8, Red Cell Distribution Width 11.6, Platelet Count 216, Mean Platelet Volume 6.9, Neutrophils (%) (Auto) , Lymphocytes (%) ( Auto) , Monocytes (%) (Auto) , Eosinophils (%) (Auto) , Basophils (%) (Auto) , Differential Total Cells Counted 100, Neutrophils % (Manual) 86H, Lymphocytes % (Manual) 9L, Monocytes % (Manual) 5, Eosinophils % (Manual) 0, Basophils % ( Manual) 0, Band Neutrophils 0, Platelet Estimate Adequate, Platelet Morphology Normal, Red Blood Cell Morphology Normal, Sodium Level 139, Potassium Level 4.4 , Chloride Level 105, Carbon Dioxide Level 27, Anion Gap 7, Blood Urea Nitrogen 16, Creatinine 0.6, Estimat Glomerular Filtration Rate > 60, Glucose Level 196H , Calcium Level 8.3L, Total Bilirubin 0.1L, Aspartate Amino Transf (AST/SGOT) 37 , Alanine Aminotransferase (ALT/SGPT) 59, Alkaline Phosphatase 93, Total Protein 6.3L, Albumin 2.6L, Globulin 3.7, Albumin/Globulin Ratio 0.7L Height (Feet): 5 Height (Inches): 10.00 Weight (Pounds): 143 Respiratory/Chest: lungs clear Abdomen: soft Addison Hernandez MD November 24, 2018 20:46
[2018-11-24] MEDS: cefTRIAXone 1 GM in D5W 55 ML IVPB SCH (22:10)
[2018-11-25] VITALS: BP 131/80
--- NOTE | 2018-11-25 00:45 | Consultation ---
DATE OF CONSULTATION: 11/24/2018 PSYCHIATRIC EVALUATION: CONSULTING PHYSICIAN: Sherri Boland M.D. HISTORY OF PRESENT ILLNESS: This is a 53-year-old female with a history of COPD and asthma who has been admitted to the hospital for medical stabilization. The patient came due to shortness of breath and productive cough. Psychiatry was consulted as the patient has been anxious, agitated, tearful. During evaluation, the patient was fobbing. Stated that she was very frustrated with her life and currently her has been cheating on her and she is in the process of divorce. The patient was unable to elaborate on the situation she is in due to severe distress. The patient stated that she has not been able to sleep. The patient presents with target symptoms of depressed mood, anxiety, insomnia, low energy, hopelessness, helplessness. The current presented to in the context of biopsychosocial stressors. Later during the evaluation, the patient stated that she was . PAST PSYCHIATRIC HISTORY: She denies being any psychiatric hospital. Denies seeing a psychiatrist. Denies taking any psychotropic medications. PAST MEDICAL HISTORY: COPD, asthma. ALLERGIES: No known drug allergies. SUBSTANCE ABUSE HISTORY: The patient is not using any drugs. She is a nonsmoker. She used to drink in the past. MENTAL STATUS EXAMINATION: The patient is alert, oriented to time, self, place, situation, and date. Cooperative with examination. She was tearful, has psychomotor agitation. Mood was depressed. Affect is tearful, blunted, and congruent with mood and appropriate. Thought process is linear. Thought content, no suicidal or homicidal ideations. ASSESSMENT: [place] I Anxiety disorder. Major depressive disorder. [place] II Deferred. [place] III COPD. [place] IV Moderate. [place] V 50. PLAN: We will start the patient on Remeron 50 mg at bedtime, Klonopin 1 mg at night, Zoloft 50 mg in the morning. We will continue to follow and readjust the medication. Sherri Boland M.D. DR: LANCE JOB#: [id number] CC:
[2018-11-25] MEDS: Albuterol/Ipratropium 3ml neb HHN SCH ×6 (03:45→23:00)
[2018-11-25 06:00] VITALS: BP 116/65
[2018-11-25] MEDS: NovoLOG Insulin Flexpen SUBQ SCH ×4 (06:09→21:32)
[2018-11-25] MEDS: HYDROcodone/Acetamin 5/325 tab ORAL PRN ×2 (06:27→18:40)
[2018-11-25] MEDS: Guaifenesin/DM 10ml syrup ORAL PRN (06:27)
[2018-11-25 06:38] LABS: ANION GAP 2 mmol/L (5-15); BLOOD UREA NITROGEN 13 mg/dL (7-18); CALCIUM 8.5 MG/DL (8.5-10.1); CARBON DIOXIDE 31 MMOL/L (21-32); CHLORIDE 104 MMOL/L (98-107); CREATININE 0.7 MG/DL (0.55-1.30); POTASSIUM 4.5 MMOL/L (3.5-5.1); SODIUM 136 MMOL/L (136-145)
[2018-11-25 06:39] LABS: BASOPHILS % (AUTO) 0.8 % (0.0-2.0); EOSINOPHILS % (AUTO) 0.1 % (0.0-3.0); HEMATOCRIT 40.3 % (37.0-47.0); HEMOGLOBIN 13.4 G/DL (12.0-16.0); LYMPHOCYTES % (AUTO) 10.5 % (20.0-45.0); MEAN CORPUSCULAR VOLUME 85 FL (80-99); MONOCYTES % (AUTO) 4.2 % (1.0-10.0); NEUTROPHILS % (AUTO) 84.4 % (45.0-75.0); PLATELET COUNT 199 K/UL (150-450); RED BLOOD COUNT 4.73 M/UL (4.20-5.40); RED CELL DISTRIBUTION WIDTH 11.5 % (11.6-14.8); WHITE BLOOD COUNT 12.3 K/UL (4.8-10.8)
--- NOTE | 2018-11-25 07:00 | NUR ---
HAND-OFF: Report given to Jasper/Leslie TAPIA. Endorsed plan of care.
--- NOTE | 2018-11-25 07:01 | NUR ---
NURSE NOTES: Received report from REGINA Landeros. The patient is having breakfast without acute distress or shortness of breath. The patient's bed in the lowest position, call light in reach, and fall precaution reinforced. Will continue plan of care.
[2018-11-25 08:00] VITALS: BP 134/88
[2018-11-25] MEDS ORDERED: Sertraline 50mg tab ORAL SCH (09:00)
--- NOTE | 2018-11-25 09:09 | General Progress Note ---
Assessment/Plan Problem List: (1) Hypokalemia ICD Codes: E87.6 - Hypokalemia SNOMED: [id number] (2) COPD (chronic obstructive pulmonary disease) ICD Codes: J44.9 - Chronic obstructive pulmonary disease, unspecified SNOMED: 96537054 Status: progressing Assessment/Plan: copd is improving abdominal pain is improving afebrile mood lability lytes abnormality is improving Subjective ROS Limited/Unobtainable: Yes Allergies: Coded Allergies: No Known Allergies (Unverified , 11/21/18) Objective Last 24 Hour Vital Signs Date Time Temp Pulse Resp B/P (MAP) Pulse Ox O2 Delivery O2 Flow Rate FiO2 11/25/18 08:07 94 22 100 Nasal Cannula 2.0 28 11/25/18 08:00 97.7 101 20 134/88 (103) 95 11/25/18 07:53 100 Nasal Cannula 2.0 28 11/25/18 07:53 Nasal Cannula 2.0 28 11/25/18 07:53 92 18 100 Nasal Cannula 2.0 28 11/25/18 06:57 97.2 11/25/18 06:00 97.7 71 20 116/65 (82) 98 11/25/18 04:20 80 11/25/18 03:45 Nasal Cannula 2.0 28 11/25/18 03:45 Nasal Cannula 2.0 28 11/25/18 00:00 97.2 82 20 131/80 (97) 100 11/25/18 00:00 93 11/24/18 23:44 88 18 99 Nasal Cannula 2.0 11/24/18 23:34 87 18 98 Nasal Cannula 2.0 11/24/18 21:00 Nasal Cannula 2.0 Nasal Cannula 2.0 11/24/18 20:04 95 20 99 Nasal Cannula 2.0 28 11/24/18 20:00 77 11/24/18 20:00 97.7 79 20 125/75 (92) 98 11/24/18 19:54 83 18 97 Nasal Cannula 2.0 28 11/24/18 19:54 Nasal Cannula 2.0 28 11/24/18 19:54 97 Nasal Cannula 2.0 28 11/24/18 16:00 98.4 82 17 126/82 (97) 96 11/24/18 16:00 76 11/24/18 15:00 Nasal Cannula 2.0 28 11/24/18 15:00 Nasal Cannula 2.0 28 11/24/18 12:00 86 11/24/18 12:00 97.5 78 17 124/81 (95) 94 11/24/18 11:20 Nasal Cannula 2.0 28 11/24/18 11:20 Nasal Cannula 2.0 28 Intake and Output 11/24/18 11/25/18 19:00 07:00 Intake Total 840 ml Balance 840 ml Other 840 ml # Voids 2 Laboratory Tests 11/25/18 05:45: White Blood Count 12.3H, Red Blood Count 4.73, Hemoglobin 13.4, Hematocrit 40.3 , Mean Corpuscular Volume 85, Mean Corpuscular Hemoglobin 28.4, Mean Corpuscular Hemoglobin Concent 33.4, Red Cell Distribution Width 11.5L, Platelet Count 199, Mean Platelet Volume 7.0, Neutrophils (%) (Auto) 84.4H, Lymphocytes (%) (Auto) 10.5L, Monocytes (%) (Auto) 4.2, Eosinophils (%) (Auto) 0.1, Basophils (%) (Auto) 0.8, Sodium Level 136, Potassium Level 4.5, Chloride Level 104, Carbon Dioxide Level 31, Anion Gap 2L, Blood Urea Nitrogen 13, Creatinine 0.7, Estimat Glomerular Filtration Rate > 60, Glucose Level 210H, Calcium Level 8.5, Lipase 135 Height (Feet): 5 Height (Inches): 10.00 Weight (Pounds): 143 Neck: supple Cardiovascular: normal rate Abdomen: soft Addison Hernandez MD November 25, 2018 09:09
[2018-11-25] MEDS: Solu-MEDROL 125mg Inj IVP SCH (09:26)
[2018-11-25] MEDS: Sucralfate 1gm tab ORAL SCH (09:27)
[2018-11-25] MEDS: Oseltamivir 75mg cap ORAL SCH ×2 (09:29→18:31)
[2018-11-25] MEDS: Heparin 5000 units/ml inj SUBQ SCH ×2 (09:30→21:33)
[2018-11-25] MEDS: Azithromycin 250mg tab ORAL SCH (09:30)
[2018-11-25 12:00] VITALS: BP 137/81
--- NOTE | 2018-11-25 13:08 | Nephrology Progress Note ---
Assessment/Plan Problem List: (1) Hypokalemia (2) COPD (chronic obstructive pulmonary disease) (3) Amphetamine abuse Assessment stable from renal stand Mild HypoKalemia and HypoNatremia Urine + for Amphetamines- Chronic obstructive pulmonary disease/Asthma Pneumonia Nodular abnormailty right perihilar region Hx of smoking Plan antibiotics PO K supplement Monitor lytes steroid taper per pulmonary ! stable from renal stand will follow as needed ? DC on PO Abx?? Subjective ROS Limited/Unobtainable: No Objective Objective Last 24 Hour Vital Signs Date Time Temp Pulse Resp B/P (MAP) Pulse Ox O2 Delivery O2 Flow Rate FiO2 11/25/18 12:00 97.3 81 20 137/81 (99) 94 11/25/18 11:49 88 18 99 Nasal Cannula 2.0 28 11/25/18 11:39 78 18 98 Nasal Cannula 2.0 28 11/25/18 09:00 Nasal Cannula 2.0 Nasal Cannula 2.0 11/25/18 08:07 94 22 100 Nasal Cannula 2.0 28 11/25/18 08:00 97.7 101 20 134/88 (103) 95 11/25/18 08:00 86 11/25/18 07:53 100 Nasal Cannula 2.0 28 11/25/18 07:53 Nasal Cannula 2.0 28 11/25/18 07:53 92 18 100 Nasal Cannula 2.0 28 11/25/18 06:57 97.2 11/25/18 06:00 97.7 71 20 116/65 (82) 98 11/25/18 04:20 80 11/25/18 03:45 Nasal Cannula 2.0 28 11/25/18 03:45 Nasal Cannula 2.0 28 11/25/18 00:00 97.2 82 20 131/80 (97) 100 11/25/18 00:00 93 11/24/18 23:44 88 18 99 Nasal Cannula 2.0 28 11/24/18 23:34 87 18 98 Nasal Cannula 2.0 28 11/24/18 21:00 Nasal Cannula 2.0 Nasal Cannula 2.0 11/24/18 20:04 95 20 99 Nasal Cannula 2.0 28 11/24/18 20:00 77 11/24/18 20:00 97.7 79 20 125/75 (92) 98 11/24/18 19:54 83 18 97 Nasal Cannula 2.0 28 11/24/18 19:54 Nasal Cannula 2.0 28 11/24/18 19:54 97 Nasal Cannula 2.0 28 11/24/18 16:00 98.4 82 17 126/82 (97) 96 11/24/18 16:00 76 11/24/18 15:00 Nasal Cannula 2.0 28 11/24/18 15:00 Nasal Cannula 2.0 28 Intake and Output 11/24/18 11/25/18 19:00 07:00 Intake Total 840 ml Balance 840 ml Other 840 ml # Voids 2 Laboratory Tests 11/25/18 05:45: White Blood Count 12.3H, Red Blood Count 4.73, Hemoglobin 13.4, Hematocrit 40.3 , Mean Corpuscular Volume 85, Mean Corpuscular Hemoglobin 28.4, Mean Corpuscular Hemoglobin Concent 33.4, Red Cell Distribution Width 11.5L, Platelet Count 199, Mean Platelet Volume 7.0, Neutrophils (%) (Auto) 84.4H, Lymphocytes (%) (Auto) 10.5L, Monocytes (%) (Auto) 4.2, Eosinophils (%) (Auto) 0.1, Basophils (%) (Auto) 0.8, Sodium Level 136, Potassium Level 4.5, Chloride Level 104, Carbon Dioxide Level 31, Anion Gap 2L, Blood Urea Nitrogen 13, Creatinine 0.7, Estimat Glomerular Filtration Rate > 60, Glucose Level 210H, Calcium Level 8.5, Lipase 135 Height (Feet): 5 Height (Inches): 10.00 Weight (Pounds): 143 General Appearance: no apparent distress Cardiovascular: normal rate Respiratory/Chest: other - no wheez Donal Mooney MD November 25, 2018 13:08
[2018-11-25 16:00] VITALS: BP 115/77
--- NOTE | 2018-11-25 17:40 | NUR ---
NURSE NOTES: Transferred the patient to [facility] safely. The patient's inventory checked with the patient and nurse at the bedside and signed. Took off the telemonitoring after receiving transfer order to medical/surgical unit. The patient's IV is intact. The patient's bed is in the lowest position, call light in reach, and fall precaution reinforced. She denies of acute distress or shortness of breath. Endorsed plan of care. Addendum: 11/25/18 at 1820 by Miguel Ocampo RN Gave report to Dona Cramer RN at medical/surgical unit who will take care of Michelle Hoang.
--- NOTE | 2018-11-25 17:41 | NUR ---
NURSE NOTES: Received patient from tele. Not in acute respiratory/cardiac distress. Denies any pain or discomfort @ this time. All belongings were checked with patient and another RN from tele. Skin intact, IV intact, no s/s of infiltration. Re-orientation given about the unit, Will continue plan of care.
[2018-11-25] MEDS ORDERED: Guaifenesin/DM 10ml syrup ORAL PRN (17:42)
[2018-11-25] MEDS ORDERED: Promethazine 25mg tab ORAL PRN (17:43)
[2018-11-25] MEDS ORDERED: Pneumococcal Vaccine 25mcg/0.5ml IM ONE (17:45)
[2018-11-25] MEDS ORDERED: Docusate 100mg cap ORAL SCH (18:00)
[2018-11-25] MEDS: Docusate 100mg cap ORAL SCH (18:31)
--- NOTE | 2018-11-25 19:45 | NUR ---
NURSE NOTES: Received report from Dona Cramer RN. Patient A&Ox4. On nasal cannula 2L/min. No signs of distress or labored breathing. IV intact, patent, and saline locked. Bed in lowest position with call light in reach. Will continue with plan of care.
--- NOTE | 2018-11-25 19:45 | NUR ---
HAND-OFF: Report given to Pooja.
[2018-11-25 20:00] VITALS: BP 122/84
[2018-11-25] MEDS ORDERED: cefTRIAXone 1 GM in D5W 55 ML IVPB SCH (22:00)
[2018-11-26] VITALS: BP 127/80
[2018-11-26] MEDS: Albuterol/Ipratropium 3ml neb HHN SCH ×4 (03:00→15:04)
[2018-11-26 04:00] VITALS: BP 122/81
[2018-11-26] MEDS: NovoLOG Insulin Flexpen SUBQ SCH ×2 (06:15→11:30)
--- NOTE | 2018-11-26 07:38 | NUR ---
HAND-OFF: Report given to REGINA Olson.
--- NOTE | 2018-11-26 07:39 | NUR ---
NURSE NOTES: Patient received sleeping in bed. Respirations even and unlabored on room air. No signs of respiratory distress or pain observed. IV site on right arm saline lock. Bed locked in lowest position. Call light placed within reach, will continue to monitor.
[2018-11-26 08:00] VITALS: BP 125/84
[2018-11-26] MEDS: Docusate 100mg cap ORAL SCH ×2 (08:48→12:10)
[2018-11-26] MEDS: Oseltamivir 75mg cap ORAL SCH (08:49)
[2018-11-26] MEDS: HYDROcodone/Acetamin 5/325 tab ORAL PRN (08:52)
[2018-11-26] MEDS: Heparin 5000 units/ml inj SUBQ SCH (08:59)
[2018-11-26] MEDS ORDERED: Azithromycin 250mg tab ORAL SCH (09:00)
[2018-11-26] MEDS ORDERED: Sertraline 50mg tab ORAL SCH (09:00)
--- NOTE | 2018-11-26 09:10 | Pulmonology Progress Note ---
Assessment/Plan Assessment/Plan COPD SOB patchy pneumonia abnormal CT PLAN care noted respiratory care supportive care encourage cough MAY GO HOME ON MEDROL DOSE BERNARDO [id number] QD PER ID PROAIR PRN ANORO 1 PUFF QD will need outpatient follow up of imaging and pulmonary status UPDATE Subjective Allergies: Coded Allergies: No Known Allergies (Unverified , 11/21/18) Subjective coverage for Dr. Larios reviewed care pulmonary ya stable Objective Last 24 Hour Vital Signs Date Time Temp Pulse Resp B/P (MAP) Pulse Ox O2 Delivery O2 Flow Rate FiO2 11/26/18 08:32 Nasal Cannula 2.0 28 11/26/18 08:32 92 Nasal Cannula 2.0 28 11/26/18 08:32 92 18 98 Nasal Cannula 2.0 28 11/26/18 04:00 98.3 83 18 122/81 (95) 98 11/26/18 03:01 Nasal Cannula 2.0 28 11/26/18 03:01 Nasal Cannula 2.0 28 11/26/18 00:00 99.1 101 18 127/80 (96) 94 11/25/18 23:00 Nasal Cannula 2.0 28 11/25/18 23:00 Nasal Cannula 2.0 28 11/25/18 21:00 Nasal Cannula 2.0 Nasal Cannula 2.0 11/25/18 20:00 98.9 114 18 122/84 (97) 95 11/25/18 18:59 110 18 97 Nasal Cannula 2.0 11/25/18 18:49 96 18 97 Nasal Cannula 2.0 11/25/18 18:49 Nasal Cannula 2.0 11/25/18 18:49 97 Nasal Cannula 2.0 11/25/18 16:00 98.4 97 20 115/77 (90) 97 11/25/18 16:00 87 11/25/18 15:32 89 18 98 Nasal Cannula 2.0 28 11/25/18 15:22 83 18 97 Nasal Cannula 2.0 28 11/25/18 12:00 81 11/25/18 12:00 97.3 81 20 137/81 (99) 94 11/25/18 11:49 88 18 99 Nasal Cannula 2.0 28 11/25/18 11:39 78 18 98 Nasal Cannula 2.0 28 Intake and Output 11/25/18 11/26/18 19:00 07:00 Intake Total 510 ml Balance 510 ml Intake Oral 510 ml # Voids 2 Objective WDWN NAD reduced breath sounds bilaterally without rhonchi or wheeze [id number] without MRG NABS nontender no HSM no CCE Current Medications Medications (Trade) Dose Ordered Sig/Heike Route PRN Reason Start Time Stop Time Status Last Admin Dose Admin Acetaminophen (Tylenol) 650 mg Q4H PRN ORAL Mild Pain/Temp > 100.5 11/25/18 17:41 12/21/18 17:40 Acetaminophen/ Hydrocodone Bitart ([place] 5/325) 1 tab Q6H PRN ORAL Moderate Pain (Pain Scale 4-6) 11/25/18 17:42 11/28/18 17:41 11/26/18 08:52 Albuterol/ Ipratropium (Albuterol/ Ipratropium) 3 ml Q4HRT HHN 11/25/18 19:00 11/26/18 18:59 11/26/18 08:32 Azithromycin (Zithromax) 250 mg DAILY ORAL 11/26/18 09:00 11/29/18 08:59 11/26/18 08:48 Ceftriaxone Sodium 1 gm/ Dextrose 55 ml @ 110 mls/hr Q24H IVPB 11/25/18 22:00 11/28/18 21:59 11/25/18 21:46 Clonazepam (KlonoPIN) 1 mg BEDTIME ORAL 11/25/18 21:00 12/01/18 20:59 11/25/18 21:36 Dextrose (Dextrose 50%) 25 ml Q30M PRN IV Hypoglycemia 11/25/18 17:41 12/22/18 17:40 Dextrose (Dextrose 50%) 50 ml Q30M PRN IV Hypoglycemia 11/25/18 17:41 12/22/18 17:40 Docusate Sodium (Colace) 100 mg THREE TIMES A DAY ORAL 11/25/18 18:00 12/25/18 17:59 11/26/18 08:48 Guaifenesin/ Dextromethorphan (Robitussin DM Syrup) 10 ml Q4H PRN ORAL For Cough 11/25/18 17:42 12/23/18 17:41 Heparin Sodium (Porcine) (Heparin 5000 units/ml) 5,000 units EVERY 12 HOURS SUBQ 11/25/18 21:00 12/21/18 20:59 11/26/18 08:59 Insulin Aspart (NovoLOG) BEFORE MEALS AND HS SUBQ 11/25/18 21:00 12/22/18 20:59 11/25/18 21:32 Mirtazapine (Remeron) 15 mg BEDTIME ORAL 11/25/18 21:00 12/24/18 20:59 11/25/18 21:36 Nicotine (Nicoderm) 1 patch Q24H TDERMAL 11/25/18 21:00 12/24/18 20:59 11/25/18 21:37 Ondansetron HCl (Zofran) 4 mg Q8H PRN IVP Nausea & Vomiting 11/25/18 17:42 12/21/18 17:41 Oseltamivir Phosphate (Tamiflu) 75 mg TWICE A DAY ORAL 11/25/18 18:00 11/27/18 08:59 11/26/18 08:49 Pantoprazole (Protonix) 40 mg EVERY 12 HOURS ORAL 11/25/18 21:00 12/23/18 20:59 11/26/18 08:49 Pneumococcal Polyvalent Vaccine (Pneumovax) 0.5 ml ONCE ONCE IM 11/25/18 17:45 11/27/19 11:31 UNV Potassium Chloride (K-Dur) 40 meq DAILY ORAL 11/26/18 09:00 12/22/18 08:59 11/26/18 08:49 Prednisone (predniSONE) 20 mg DAILY ORAL 11/26/18 09:00 12/26/18 08:59 11/26/18 08:49 Promethazine HCl (Phenergan) 25 mg TIDPRN PRN ORAL Severe Cough 11/25/18 17:43 12/25/18 17:42 Sertraline HCl (Zoloft) 50 mg DAILY ORAL 11/26/18 09:00 12/25/18 08:59 11/26/18 08:49 Ean Landin MD November 26, 2018 09:10
--- NOTE | 2018-11-26 11:53 | Infectious Diseases Prog Note ---
Assessment/Plan Assessment/Plan IMPRESSION: Sepsis pneumonia. chronic obstructive pulmonary disease exacerbation nicotine dependence, methamphetamine abuse, alcohol abuse. Leukocytosis likely steroid related improving Anxiety disorder Major depression RECOMMENDATION: will continue with Zithromax and Rocephin X 1 day to finish 7 days treatment F/U CXR after discharge Subjective ROS Limited/Unobtainable: No Constitutional: Reports: no symptoms, other - feels better Respiratory: Reports: no symptoms Cardiovascular: Reports: no symptoms Gastrointestinal/Abdominal: Reports: no symptoms Allergies: Coded Allergies: No Known Allergies (Unverified , 11/21/18) Objective Vital Signs Last 24 Hour Vital Signs Date Time Temp Pulse Resp B/P (MAP) Pulse Ox O2 Delivery O2 Flow Rate FiO2 11/26/18 11:25 Nasal Cannula 2.0 11/26/18 11:25 Nasal Cannula 2.0 28 11/26/18 09:00 Room Air 2.0 Nasal Cannula 11/26/18 08:32 Nasal Cannula 2.0 11/26/18 08:32 92 Nasal Cannula 2.0 11/26/18 08:32 92 18 98 Nasal Cannula 2.0 11/26/18 08:00 97.4 88 20 125/84 (98) 97 11/26/18 04:00 98.3 83 18 122/81 (95) 98 11/26/18 03:01 Nasal Cannula 2.0 11/26/18 03:01 Nasal Cannula 2.0 11/26/18 00:00 99.1 101 18 127/80 (96) 94 11/25/18 23:00 Nasal Cannula 2.0 11/25/18 23:00 Nasal Cannula 2.0 11/25/18 21:00 Nasal Cannula 2.0 Nasal Cannula 2.0 11/25/18 20:00 98.9 114 18 122/84 (97) 95 11/25/18 18:59 110 18 97 Nasal Cannula 2.0 11/25/18 18:49 96 18 97 Nasal Cannula 2.0 11/25/18 18:49 Nasal Cannula 2.0 11/25/18 18:49 97 Nasal Cannula 2.0 11/25/18 16:00 98.4 97 20 115/77 (90) 97 11/25/18 16:00 87 11/25/18 15:32 89 18 98 Nasal Cannula 2.0 19 15:22 83 18 97 Nasal Cannula 2.0 28 11/25/18 12:00 81 11/25/18 12:00 97.3 81 20 137/81 (99) 94 Height (Feet): 5 Height (Inches): 10.00 Weight (Pounds): 143 HEENT: mucous membranes moist Respiratory/Chest: lungs clear Cardiovascular: normal rate Abdomen: soft, non tender Extremities: no edema Neurologic/Psychiatric: alert, oriented x 3, responsive Current Medications Medications (Trade) Dose Ordered Sig/Heike Route PRN Reason Start Time Stop Time Status Last Admin Dose Admin Acetaminophen (Tylenol) 650 mg Q4H PRN ORAL Mild Pain/Temp > 100.5 11/25/18 17:41 12/21/18 17:40 Acetaminophen/ Hydrocodone Bitart ([place] 5/325) 1 tab Q6H PRN ORAL Moderate Pain (Pain Scale 4-6) 11/25/18 17:42 11/28/18 17:41 11/26/18 08:52 Albuterol/ Ipratropium (Albuterol/ Ipratropium) 3 ml Q4HRT HHN 11/25/18 19:00 11/26/18 18:59 11/26/18 08:32 Azithromycin (Zithromax) 250 mg DAILY ORAL 11/26/18 09:00 11/29/18 08:59 11/26/18 08:48 Ceftriaxone Sodium 1 gm/ Dextrose 55 ml @ 110 mls/hr Q24H IVPB 11/25/18 22:00 11/28/18 21:59 11/25/18 21:46 Clonazepam (KlonoPIN) 1 mg BEDTIME ORAL 11/25/18 21:00 12/01/18 20:59 11/25/18 21:36 Dextrose (Dextrose 50%) 25 ml Q30M PRN IV Hypoglycemia 11/25/18 17:41 12/22/18 17:40 Dextrose (Dextrose 50%) 50 ml Q30M PRN IV Hypoglycemia 11/25/18 17:41 12/22/18 17:40 Docusate Sodium (Colace) 100 mg THREE TIMES A DAY ORAL 11/25/18 18:00 12/25/18 17:59 11/26/18 08:48 Guaifenesin/ Dextromethorphan (Robitussin DM Syrup) 10 ml Q4H PRN ORAL For Cough 11/25/18 17:42 12/23/18 17:41 Heparin Sodium (Porcine) (Heparin 5000 units/ml) 5,000 units EVERY 12 HOURS SUBQ 11/25/18 21:00 12/21/18 20:59 11/26/18 08:59 Insulin Aspart (NovoLOG) BEFORE MEALS AND HS SUBQ 11/25/18 21:00 12/22/18 20:59 11/25/18 21:32 Mirtazapine (Remeron) 15 mg BEDTIME ORAL 11/25/18 21:00 12/24/18 20:59 11/25/18 21:36 Nicotine (Nicoderm) 1 patch Q24H TDERMAL 11/25/18 21:00 12/24/18 20:59 11/25/18 21:37 Ondansetron HCl (Zofran) 4 mg Q8H PRN IVP Nausea & Vomiting 11/25/18 17:42 12/21/18 17:41 Oseltamivir Phosphate (Tamiflu) 75 mg TWICE A DAY ORAL 11/25/18 18:00 11/27/18 08:59 11/26/18 08:49 Pantoprazole (Protonix) 40 mg EVERY 12 HOURS ORAL 11/25/18 21:00 12/23/18 20:59 11/26/18 08:49 Pneumococcal Polyvalent Vaccine (Pneumovax) 0.5 ml ONCE ONCE IM 11/25/18 17:45 11/27/19 11:31 UNV Potassium Chloride (K-Dur) 40 meq DAILY ORAL 11/26/18 09:00 12/22/18 08:59 11/26/18 08:49 Prednisone (predniSONE) 20 mg DAILY ORAL 11/26/18 09:00 12/26/18 08:59 11/26/18 08:49 Promethazine HCl (Phenergan) 25 mg TIDPRN PRN ORAL Severe Cough 11/25/18 17:43 12/25/18 17:42 Sertraline HCl (Zoloft) 50 mg DAILY ORAL 11/26/18 09:00 12/25/18 08:59 11/26/18 08:49 Ross Walker MD November 26, 2018 11:53
[2018-11-26 12:00] VITALS: BP 110/69
[2018-11-26] MEDS ORDERED: MEDROL DOSEPAK4 MG ORAL (15:55)
[2018-11-26] MEDS ORDERED: LEVAQUIN500 MG ORAL (15:57)
[2018-11-26] MEDS ORDERED: PROAIR HFA8.5 GM INH (15:57)
[2018-11-26] MEDS ORDERED: ANORO ELLIPTA1 EACH (15:58)
--- NOTE | 2018-11-26 16:25 | NUR ---
NURSE NOTES: Patient discharged to home. Levaquin paper prescription given to patient. Electronic prescriptions called in to [facility] selected by patient: [id number] tel [phone]. Dr. Landin confirmed he called in the prescriptions at 4:07pm. Discharge packet reviewed and explained to the patient. Belongings reviewed with the patient by bedside. Patient transported to home via Uber. Denies SOB or pain at time of discharge. Responded appropriately, axox4. Ambulated independently with steady gait. IV site safely removed, covered with gauze and tape.
--- NOTE | 2018-11-28 09:03 | Discharge Summary ---
Discharge Summary Discharge Summary _ DATE OF ADMISSION: 11/21/2018 DATE OF DISCHARGE: 11/26/2018 DISCHARGED BY: Dr. Hernandez REASON FOR ADMISSION: 53 years old female with past medical history of COPD, asthma, presented with cough and difficulty breathing for 3 days. Patient reported history of smoking , quit about 6 months ago. Patient reported increased productive cough with generalized body aches . Upon evaluation patient was tachycardic and tachypneic, pulse oximetry was 90% on room air. Laboratory work-up revealed leukocytosis WBC 15.5, stable hemoglobin and hematocrit. Lactic acid 1.9. Sodium 133. BUN 13, creatinine 0.9. Troponin negative. EKG revealed normal sinus rhythm no acute ischemic changes,. Chest x-ray initiated nodular density in right perihilar region ": pneumonia versus mass. Ill-defined infiltrate left lung base. Urine toxicology screen was positive for amphetamine. In emergency department patient received IV steroids and nebulizing treatment with the bronchodilator with some improvement in cough. Patient started on the IV antibiotics. Patient admitted for further management. CONSULTANTS: pulmonary Dr. Landin ID specialist Dr. Townsend GI specialist Dr. Lynch medical record administrator Dr. Mooney psychiatrist [facility] COURSE: Patient admitted Pulmonology and ID specialist closely followed. Patient started on empiric antibiotics. Patient subsequently undergone CT of the chest which revealed bilateral parenchymal opacities. The larger of these contain bronchograms, suggesting that these findings represent pneumonia rather than mass lesion. However, the latter cannot be completely excluded, and follow-up to radiographic resolution was recommended. Bilateral posterior basilar opacities likely reflecting combination of atelectasis and scarring. Supplemental oxygen provided as needed to keep pulse oximetry above 92%. Pulmonary toilet with bronchodilator provided. Patient started on the IV steroids with gradual tapering as per senior staff specialized employment direction. Blood cultures were negative, sputum culture was negative. Leukocytosis trending down. Prior to discharge WBC 12.3. Hemoglobin and hematocrit remained stable. HIV test was nonreactive. Infectious disease specialist followed. Patient was on antibiotic as per ID recommendation. Patient will need to complete antibiotic course at home as per ID specialist recommendation. GI specialist was consulted for abdominal pain. Patient was able to tolerate diet. Pain management was addressed. Antiemetic provided as needed. GI prophylaxis with PPI provided and Carafate was added for additional comfort. GI specialist recommended to consider endoscopy if patient has persistent epigastric pain, unrelieved by medical management. Patient was counseled on abstinence from illicit street drugs. [employer] T[employer] followed. Renal parameters and electrolytes were closely monitored. Electrolytes corrected as needed. Prior to discharge stable potassium and sodium. Psychiatrist followed. Patient started on Remeron Klonopin and Zoloft. Reality orientation and supportive therapy provided. Leukocytosis trending down , patient afebrile, pulse oximetry stable on room air to discharge. Rn Intake cleared patient for discharge on Medrol Dosepak, antibiotics and inhalers: daily Anoro and Pro-air as needed. Patient will need outpatient follow-up with imaging and pulmonary status update. Patient clinically stabilized and was ready for discharge home. Follow-up with chest x-ray completion of antibiotics. Follow-up with a senior staff specialized employment as outpatient. FINAL DIAGNOSES: Sepsis COPD exacerbation Patchy pneumonia Nicotine dependency Amphetamine abuse Abdominal pain GERD Hypokalemia -resolved Hyponatremia-resolved Anxiety disorder Major depressive disorder DISCHARGE MEDICATIONS: See Medication Reconciliation list. DISCHARGE INSTRUCTIONS: Patient was discharged home. Follow up with primary care provider in one week. Outpatient follow-up with a senior staff specialized employment was recommended. I have been assigned to dictate discharge summary for this account. I was not involved in the patient's management. Michelle Wilson NP November 28, 2018 09:03
== END 2018-11-26 16:25 | disposition home or self-care (01) | DRG 871 ==
LOC: EMR 14:50 → 2E 15:00 → EDBEDREQ 15:50 → EMR 16:06 → 4E 11-25 17:05
DX: A41.9 Sepsis, unspecified organism (principal); J18.9 Pneumonia, unspecified organism; J44.0 Chronic obstructive pulmonary disease with (acute) lower respiratory infection; J44.1 Chronic obstructive pulmonary disease with (acute) exacerbation; E87.1 Hypo-osmolality and hyponatremia; J44.9 Chronic obstructive pulmonary disease, unspecified; F15.10 Other stimulant abuse, uncomplicated; R10.9 Unspecified abdominal pain; K21.9 Gastro-esophageal reflux disease without esophagitis; E87.6 Hypokalemia; F41.9 Anxiety disorder, unspecified; F32.9 Major depressive disorder, single episode, unspecified; F10.10 Alcohol abuse, uncomplicated; Z23 Encounter for immunization; Z87.891 Personal history of nicotine dependence
CPT/HCPCS: 36415; 71045; 71250; 80048; 80053; 80307; 82962; 83605; 83690; 83735; 83880; 83930; 84100; 84484; 84550; 85007; 85025; 86140; 86703; 86710; 87040; 87070; 87205; 93005; 94640; 94664; 94760; 96365; 96375; 99285; J1815; J7620; J8499